=== PATIENT | female | born 1965 | race Caucasian/White ===

== ENCOUNTER 2017-12-19 12:23 | Emergency (ER) | payer BC ==
[2017-12-19] MEDS ORDERED: Cyclobenzaprine 10 MG Tab PO ONE (12:24)
[2017-12-19 12:31] VITALS: BP 132/91
[2017-12-19] MEDS ORDERED: Take Home: Cyclobenzaprine 10 MG Tab, 4 Tab Pack PO ONE (12:59)
--- NOTE | 2017-12-19 13:03 | EDM.PDOC ---
ED HPI GENERAL MEDICAL PROBLEM - General Chief Complaint: Headache Stated Complaint: headache Time Seen by Provider: 12/19/17 12:47 Source of Information: Reports: Patient History Limitations: Reports: No Limitations - History of Present Illness INITIAL COMMENTS - FREE TEXT/NARRATIVE: This patient is a 52 year old female that presents to the ER. Patient reports that she is on muscle relaxer Robaxin for stress and muscle tension. She reports its on backorder at the pharmacy and she has been out for two days. She reports she has been under stress and tension due to her daughter at home. She reports that she is having muscle tension in her neck to the back of her head creating stress tension headache. She denies n, v, d, f, vision changes, stiff neck, cp, soa. Stable. Onset Date: 12/17/17 Duration: Day(s): (2) Location: Reports: Head, Neck Quality: Reports: Ache Severity: Mild Improves with: Reports: None Worsens with: Reports: None Associated Symptoms: Reports: Headaches. Denies: Confusion, Chest Pain, Cough, cough w sputum, Diaphoresis, Fever/Chills, Loss of Appetite, Malaise, Nausea/ Vomiting, Rash, Seizure, Shortness of Breath, Syncope, Weakness Headache Pain Score (Numeric/FACES): 7 - Related Data Allergies Allergy/AdvReac Type Severity Reaction Status Date / Time amoxicillin Allergy Hives Verified 12/19/17 12:30 ketorolac tromethamine Allergy Itching Verified 12/19/17 12:30 [From Toradol] prochlorperazine edisylate Allergy Agitation Verified 12/19/17 12:30 [From Compazine] prochlorperazine maleate Allergy Agitation Verified 12/19/17 12:30 [From Compazine] sumatriptan [From Imitrex] Allergy Airway Verified 12/19/17 12:30 Tightness sumatriptan succinate Allergy Airway Verified 12/19/17 12:30 [From Imitrex] Tightness Home Meds: Home Meds ALPRAZolam [Xanax] 0.5 mg PO Q6H PRN 07/24/13 [History] Citalopram Hydrobromide [Celexa] 40 mg PO DAILY 07/24/13 [History] Hydrocodone/Acetaminophen [Bed[place] 5-325 Tablet] 1 each PO Q6H PRN 07/24/13 [ History] Levothyroxine [Sythroid] 150 mcg PO DAILY 07/24/13 [History] Methocarbamol [Robaxin] 750 mg PO QID 07/24/13 [History] Omeprazole 40 mg PO DAILY 07/24/13 [History] Simvastatin [Zocor] 10 mg PO DAILY 07/24/13 [History] Gabapentin [Neurontin] 300 mg PO QID 06/06/14 [History] ARIPiprazole [Abilify] 5 mg PO DAILY 12/19/17 [History] Past Medical History Cardiovascular History: Reports: High Cholesterol Respiratory History: Reports: Sleep Apnea Gastrointestinal History: Reports: GERD Musculoskeletal History: Reports: Back Pain, Chronic, Other (See Below) Other Musculoskeletal History: shoulder surgery, Neurological History: Reports: Seizure Psychiatric History: Reports: Anxiety, Depression Endocrine/Metabolic History: Reports: Hypothyroidism - Past Surgical History HEENT Surgical History: Reports: Adenoidectomy, Oral Surgery, Tonsillectomy Female Surgical History: Reports: Hysterectomy Social & Family History - Tobacco Use Smoking Status *Q: Current Every Day Smoker Years of Tobacco use: 30 Packs/Tins Daily: 1 - Caffeine Use Caffeine Use: Reports: None - Recreational Drug Use Recreational Drug Use: No ED ROS GENERAL - Review of Systems Review Of Systems: See Below Constitutional: Reports: No Symptoms HEENT: Reports: No Symptoms Respiratory: Reports: No Symptoms Cardiovascular: Reports: No Symptoms Endocrine: Reports: No Symptoms GI/Abdominal: Reports: No Symptoms : Reports: No Symptoms Musculoskeletal: Reports: Muscle Stiffness (neck to back of head) Skin: Reports: No Symptoms Neurological: Reports: Headache (posterior) Psychiatric: Reports: No Symptoms Hematologic/Lymphatic: Reports: No Symptoms Immunologic: Reports: No Symptoms - Physical Exam Exam: See Below Exam Limited By: No Limitations General Appearance: Alert, WD/WN, No Apparent Distress Eye Exam: Bilateral Eye: EOMI, Normal Inspection, PERRL Ears: Normal External Exam, Normal Canal, Hearing Grossly Normal, Normal TMs Nose: Normal Inspection, Normal Mucosa, No Blood Throat/Mouth: Normal Inspection, Normal Lips, Normal Teeth, Normal Gums, Normal Oropharynx, Normal Voice, No Airway Compromise Head Exam: Atraumatic, Normocephalic Neck: Normal Inspection, Supple, Non-Tender, Full Range of Motion Respiratory/Chest: No Respiratory Distress, Lungs Clear, Normal Breath Sounds, No Accessory Muscle Use, Chest Non-Tender Cardiovascular: Normal Peripheral Pulses, Regular Rate, Rhythm, No Edema, No Gallop, No JVD, No Murmur, No Rub Neuro Exam (Abbreviated): Alert, Oriented, Normal Cognition, Normal Gait, No Motor/Sensory Deficits Back Exam: Normal Inspection, Full Range of Motion Extremities: Normal Inspection, Normal Range of Motion, Non-Tender, No Pedal Edema, Normal Capillary Refill Psychiatric: Normal Affect, Normal Mood Skin Exam: Warm, Dry, Intact, Normal Color, No Rash Course - Vital Signs Last Recorded V/S: Last Vital Signs Temp 96.8 F 12/19/17 12:27 Pulse 79 12/19/17 12:27 Resp 20 12/19/17 12:27 BP 132/91 H 12/19/17 12:27 Pulse Ox 98 12/19/17 12:27 - Orders/Labs/Meds Meds: Medications Discontinued Medications Generic Name Dose Route Start Last Admin Trade Name Freq PRN Reason Stop Dose Admin Cyclobenzaprine HCl 2 packet 12/19/17 12:59 Take Home: Cyclobenzaprine 10 Mg, 4 Tab Pack PO 12/19/17 13:00 ONETIME ONE Orphenadrine Citrate 60 mg 12/19/17 12:58 Norflex IM 12/19/17 12:59 NOW STA Departure - Departure Time of Disposition: 13:05 Disposition: Home, Self-Care 01 Condition: Good Clinical Impression: Tension-type headache - Discharge Information Referrals: Alysia Francisco PA-C [Primary Care Provider] - Forms: ED Department Discharge Additional Instructions: Followup with your primary care provider Return to the ER for worsening of condition or any emergent concerns Increase fluids Go home and rest Flexeril 10mg 1 pill three times a day for muscle tension no refill 2 packs - Assessment/Plan Plan: PLEASE SEE RN NOTE FOR PFSH.
== END 2017-12-19 13:12 | disposition home or self-care (01) ==
LOC: CC.ED 12:23
DX: G44.209 Tension-type headache, unspecified, not intractable (principal); K21.9 Gastro-esophageal reflux disease without esophagitis; E03.9 Hypothyroidism, unspecified; Z88.1 Allergy status to other antibiotic agents; Z88.6 Allergy status to analgesic agent; Z88.8 Allergy status to other drugs, medicaments and biological substances; Z79.899 Other long term (current) drug therapy
CPT/HCPCS: 96372; 99283; A9270; J2360

== ENCOUNTER → 2018-12-17 | Day surgery (SDC) | payer BC ==
[~2018-12-17] MED LIST: Lactated Ringers 1,000 ML IV SCH; Propofol 200 MG/20 ML SDV IV ONE
[2018-12-17 13:19] VITALS: BP 188/43
--- NOTE | 2018-12-17 14:05 | OR ---
DATE OF OPERATION: 12/17/2018 PREOPERATIVE DIAGNOSIS: SCREENING COLONOSCOPY. POSTOPERATIVE DIAGNOSIS: SCREENING COLONOSCOPY. SURGEON: Dax Stout MD PROCEDURE: FULL-LENGTH COLONOSCOPY WITH POLYP REMOVAL X4. ANESTHESIA: MAC via PUMP AND STILL OPERATOR. COMPLICATIONS: None. SPECIMEN: 1. Villous adenoma, right colon. 2. Sessile polyp, hepatic flexure. 3. Sessile polyp, transverse colon. 4. Tubular adenoma, rectosigmoid junction. FINDINGS: 1. Full-length colonoscopy. 2. Four separate polyps as described above. RECOMMENDATIONS: Followup colonoscopy in 3 years. INDICATIONS: The patient was in for a routine physical and she was sent for a screening colonoscopy. She is asymptomatic. DESCRIPTION OF PROCEDURE: The patient was prepped and draped, placed in the left lateral decubitus position. A lubricated Olympus colonoscope was inserted and with relative ease advanced to the cecum. We were able to directly visualize the ileocecal valve and appendiceal orifice. The bowel prep was excellent. Upon withdrawal of the scope, cecal pouch appeared fine. In the proximal ascending colon, the patient had a flat 7 or 8 mm villous adenoma removed easily with a snare and actually brought out through the scope in the snare. On the removal site, had no bleeding. The rest of the ascending colon was benign. At the hepatic flexure, the patient had a small flat sessile polyp of approximately 3 mm removed in its entirety with a forceps. The 2nd sessile polyp was found in the proximal transverse colon also removed with a forceps biopsy x2 without problem. This was around 4 mm. The rest of the transverse and descending colons were completely benign. In the sigmoid colon, the patient had no signs of any vascular abnormalities, colitis, or diverticula, and near the rectosigmoid junction, the patient had a 4th small tubular adenoma removed in its entirety with 2 forceps biopsies as well. The rectal vault was benign. Retroflexion of the scope in the rectum showed no anal lesions. Air was then suctioned, scope was removed without complication. PIERRE/THOMAS /[id number]
== END ==
LOC: CC.SDS 11:08
PROVIDERS: ATTEND Family Medicine
DX: Z12.11 Encounter for screening for malignant neoplasm of colon (principal); D12.2 Benign neoplasm of ascending colon; D12.3 Benign neoplasm of transverse colon; D12.7 Benign neoplasm of rectosigmoid junction; K63.5 Polyp of colon; E03.9 Hypothyroidism, unspecified; E78.00 Pure hypercholesterolemia, unspecified; E55.9 Vitamin D deficiency, unspecified; F41.9 Anxiety disorder, unspecified; F32.9 Major depressive disorder, single episode, unspecified; F17.210 Nicotine dependence, cigarettes, uncomplicated; G43.909 Migraine, unspecified, not intractable, without status migrainosus; G47.30 Sleep apnea, unspecified; G40.909 Epilepsy, unspecified, not intractable, without status epilepticus; G89.29 Other chronic pain; M54.9 Dorsalgia, unspecified; M19.90 Unspecified osteoarthritis, unspecified site; Z88.0 Allergy status to penicillin; Z88.8 Allergy status to other drugs, medicaments and biological substances; Z88.6 Allergy status to analgesic agent; Z79.899 Other long term (current) drug therapy
CPT/HCPCS: 45380; 45385; J2704; J7120

== ENCOUNTER 2021-04-14 14:48 | Emergency (ER) | payer OTHER, BC ==
[2021-04-14 14:52] VITALS: BP 118/77; PULSE 75
[2021-04-14] MEDS: Ondansetron 4 MG Tab.DIS PO ONE (15:14)
[2021-04-14] MEDS: Morphine 10 MG/ML SDV IM ONE (15:14)
[2021-04-14] MEDS: predniSONE 20 MG Tab PO STA (15:14)
--- NOTE | 2021-04-14 15:15 | EDM.PDOC ---
ED HPI GENERAL MEDICAL PROBLEM - General Chief Complaint: General Stated Complaint: back pain Time Seen by Provider: 04/14/21 15:02 Source of Information: Reports: Patient History Limitations: Reports: No Limitations - History of Present Illness INITIAL COMMENTS - FREE TEXT/NARRATIVE: This patient is a 56 year old female that presents to the ER. Patient reports that in late February she was lifting an object at work and hurt her lower back. Patient reports since then having right lower back pain to the right leg. She reports being see by PCP. She reports having PT and it was helping. Her last day of PT was this past week. She reports then on her back started to hurt worse again and to the right leg posterior buttock to the knee like before. No known injury to make pain worse. Denies urinary/bowel incontinence or any numbness/tingling to the rectum to indicate any saddle parathesia. Onset Date: 03/25/21 Quality: Reports: Burning Severity: Moderate Improves with: Reports: None Worsens with: Reports: None, Movement Associated Symptoms: Reports: No Other Symptoms. Denies: Confusion, Chest Pain, Cough, cough w sputum, Diaphoresis, Fever/Chills, Headaches, Loss of Appetite, Malaise, Nausea/Vomiting, Rash, Seizure, Shortness of Breath, Syncope, Weakness Right Lower Back Pain Score (Numeric/FACES): 9 - Related Data Allergies Allergy/AdvReac Type Severity Reaction Status Date / Time amoxicillin Allergy Hives Verified 04/14/21 14:52 ketorolac tromethamine Allergy Itching Verified 04/14/21 14:52 [From Toradol] prochlorperazine edisylate Allergy Agitation Verified 04/14/21 14:52 [From Compazine] prochlorperazine maleate Allergy Agitation Verified 04/14/21 14:52 [From Compazine] sumatriptan [From Imitrex] Allergy Airway Verified 04/14/21 14:52 Tightness sumatriptan succinate Allergy Airway Verified 04/14/21 14:52 [From Imitrex] Tightness Home Meds: Home Meds Citalopram Hydrobromide [Celexa] 40 mg PO DAILY 07/24/13 [History] Levothyroxine [Sythroid] 150 mcg PO DAILY 07/24/13 [History] Omeprazole 40 mg PO DAILY 07/24/13 [History] Simvastatin [Zocor] 10 mg PO DAILY 07/24/13 [History] methocarbamoL [Robaxin] 750 mg PO QID 07/24/13 [History] Gabapentin [Neurontin] 300 mg PO QID 06/06/14 [History] Cholecalciferol (Vitamin D3) [Vitamin D3] 2,000 unit PO DAILY 12/16/18 [History] Acetaminophen/Codeine [Tylenol with Codeine No.3 300MG/30MG] 1 tab PO ASDIRECTED 04/14/21 [History] predniSONE [Prednisone] 20 mg PO BID 5 Days #10 tablet 04/14/21 [Rx] Past Medical History Cardiovascular History: Reports: High Cholesterol Respiratory History: Reports: Sleep Apnea Gastrointestinal History: Reports: GERD Musculoskeletal History: Reports: Back Pain, Chronic, Other (See Below) Other Musculoskeletal History: shoulder surgery, Neurological History: Reports: Seizure Psychiatric History: Reports: Anxiety, Depression Endocrine/Metabolic History: Reports: Hypothyroidism - Past Surgical History HEENT Surgical History: Reports: Adenoidectomy, Oral Surgery, Tonsillectomy Female Surgical History: Reports: Hysterectomy Social & Family History - Tobacco Use Tobacco Use Status *Q: Current Every Day Tobacco User Years of Tobacco use: 20 Packs/Tins Daily: 0.5 - Caffeine Use Caffeine Use: Reports: Soda - Recreational Drug Use Recreational Drug Use: No ED ROS GENERAL - Review of Systems Review Of Systems: See Below Constitutional: Reports: No Symptoms HEENT: Reports: No Symptoms Respiratory: Reports: No Symptoms Cardiovascular: Reports: No Symptoms Endocrine: Reports: No Symptoms GI/Abdominal: Reports: No Symptoms : Reports: No Symptoms Musculoskeletal: Reports: Back Pain, Leg Pain (right leg to posterior knee) Skin: Reports: No Symptoms Neurological: Reports: No Symptoms Psychiatric: Reports: No Symptoms Hematologic/Lymphatic: Reports: No Symptoms Immunologic: Reports: No Symptoms ED EXAM, GENERAL - Physical Exam Exam: See Below Exam Limited By: No Limitations General Appearance: Alert, WD/WN, No Apparent Distress Head: Atraumatic, Normocephalic Neck: Normal Inspection, Supple, Non-Tender, Full Range of Motion Respiratory/Chest: No Respiratory Distress, Lungs Clear, Normal Breath Sounds, No Accessory Muscle Use Cardiovascular: Normal Peripheral Pulses, Regular Rate, Rhythm, No Edema, No Gallop, No JVD, No Murmur, No Rub Peripheral Pulses: 2+: Radial (L), Radial (R), Popliteal (L), Popliteal (R), Posterior Tibial (L), Posterior Tibial (R), Dorsalis Pedis (L), Dorsalis Pedis (R) GI/Abdominal: Soft, Non-Tender Back Exam: Normal Inspection, Full Range of Motion, Decreased Range of Motion, Paraspinal Tenderness (right lumbar. right buttock ). No: CVA Tenderness (L), CVA Tenderness (R), Vertebral Tenderness Extremities: Normal Inspection, Normal Range of Motion, Non-Tender, No Pedal Edema, Normal Capillary Refill Neurological: Alert, Oriented, Normal Cognition, Normal Gait, Normal Reflexes, No Motor/Sensory Deficits Psychiatric: Normal Affect, Normal Mood Skin Exam: Warm, Dry, Intact, Normal Color, No Rash Course - Vital Signs Last Recorded V/S: Last Vital Signs Temp 96.1 F L 04/14/21 14:48 Pulse 75 04/14/21 14:48 Resp 18 04/14/21 14:48 BP 118/77 04/14/21 14:48 Pulse Ox 99 04/14/21 14:48 - Orders/Labs/Meds Orders: Active Orders 24 hr Category Date Time Status Morphine Med 04/14/21 15:08 Once 4 mg IM ONETIME ONE Ondansetron [Zofran ODT] Med 04/14/21 15:07 Once 4 mg PO ONETIME ONE predniSONE Med 04/14/21 15:07 Stat 20 mg PO NOW STA Departure - Departure Time of Disposition: 15:10 Disposition: Home, Self-Care 01 Condition: Fair Clinical Impression: Back pain with sciatica - Discharge Information *PRESCRIPTION DRUG MONITORING PROGRAM REVIEWED*: Not Applicable *COPY OF PRESCRIPTION DRUG MONITORING REPORT IN PATIENT ZAN: Not Applicable Prescriptions: predniSONE [Prednisone] 20 mg PO BID 5 Days #10 tablet Instructions: Sciatica, [id number] Additional Instructions: Followup with your primary care provider Return to the ER for worsening of condition or any emergent concerns Prednisone 20mg 1 pill twice a day for 5 days #10 no refill: Sent to pharmacy [facility] No lifting greater than 10lbs Tylenol for pain Sepsis Event Note (ED) - Evaluation Sepsis Screening Result: No Definite Risk - Focused Exam Vital Signs: Vital Signs Temp Pulse Resp BP Pulse Ox 04/14/21 14:48 96.1 F L 75 18 118/77 99 - My Orders Last 24 Hours: My Active Orders 04/14/21 15:07 Ondansetron [Zofran ODT] 4 mg PO ONETIME ONE 04/14/21 15:07 predniSONE 20 mg PO NOW STA 04/14/21 15:08 Morphine 4 mg IM ONETIME ONE - Assessment/Plan Last 24 Hours: My Active Orders 04/14/21 15:07 Ondansetron [Zofran ODT] 4 mg PO ONETIME ONE 04/14/21 15:07 predniSONE 20 mg PO NOW STA 04/14/21 15:08 Morphine 4 mg IM ONETIME ONE Plan: PLEASE SEE RN NOTE FOR PFSH
== END 2021-04-14 15:20 | disposition home or self-care (01) ==
LOC: CC.ED 14:48
DX: M54.41 Lumbago with sciatica, right side (principal); E78.00 Pure hypercholesterolemia, unspecified; K21.9 Gastro-esophageal reflux disease without esophagitis; E03.9 Hypothyroidism, unspecified; Z72.0 Tobacco use; Z88.0 Allergy status to penicillin; Z88.6 Allergy status to analgesic agent; Z79.899 Other long term (current) drug therapy; Z88.8 Allergy status to other drugs, medicaments and biological substances
CPT/HCPCS: 96372; 99283; A9270-GY; J2270; J7512

== ENCOUNTER 2021-04-15 05:40 | Emergency (ER) | payer OTHER, BC ==
[2021-04-15 05:57] VITALS: BP 140/88; PULSE 81
--- NOTE | 2021-04-15 05:59 | EDM.PDOC ---
ED HPI GENERAL MEDICAL PROBLEM - General Chief Complaint: General Stated Complaint: back pain Time Seen by Provider: 04/15/21 05:46 Source of Information: Reports: Patient History Limitations: Reports: No Limitations - History of Present Illness INITIAL COMMENTS - FREE TEXT/NARRATIVE: This patient is a 56 year old female that presents to the ER for return visit for chronic back pain with right sided sciatica that has flared per patient. Patient was seen yesterday in the ER for same complaint. Patient reports she was doing fine when she left the ER, then she went to work and bent over lifting again and now it hurts again. Patient denies any urinary/bowel incontinence, or numbness around rectum to indicate saddle parathesia. Patient is allergic to Toradol, she reports causes body rash and itching. Onset Date: 03/25/21 Duration: Chronic Quality: Reports: Burning Severity: Moderate Improves with: Reports: Immobilization Worsens with: Reports: Movement Associated Symptoms: Reports: No Other Symptoms Right Back Pain Score (Numeric/FACES): 6 - Related Data Allergies Allergy/AdvReac Type Severity Reaction Status Date / Time amoxicillin Allergy Hives Verified 04/15/21 05:47 ketorolac tromethamine Allergy Itching Verified 04/15/21 05:47 [From Toradol] prochlorperazine edisylate Allergy Agitation Verified 04/15/21 05:47 [From Compazine] prochlorperazine maleate Allergy Agitation Verified 04/15/21 05:47 [From Compazine] sumatriptan [From Imitrex] Allergy Airway Verified 04/15/21 05:47 Tightness sumatriptan succinate Allergy Airway Verified 04/15/21 05:47 [From Imitrex] Tightness Home Meds: Home Meds Citalopram Hydrobromide [Celexa] 40 mg PO DAILY 07/24/13 [History] Levothyroxine [Sythroid] 150 mcg PO DAILY 07/24/13 [History] Omeprazole 40 mg PO DAILY 07/24/13 [History] Simvastatin [Zocor] 10 mg PO DAILY 07/24/13 [History] methocarbamoL [Robaxin] 750 mg PO QID 07/24/13 [History] Gabapentin [Neurontin] 300 mg PO QID 06/06/14 [History] Cholecalciferol (Vitamin D3) [Vitamin D3] 2,000 unit PO DAILY 12/16/18 [History] Acetaminophen/Codeine [Tylenol with Codeine No.3 300MG/30MG] 1 tab PO ASDIRECTED 04/14/21 [History] predniSONE [Prednisone] 20 mg PO BID 5 Days #10 tablet 04/14/21 [Rx] Past Medical History Cardiovascular History: Reports: High Cholesterol Respiratory History: Reports: Sleep Apnea Gastrointestinal History: Reports: GERD Musculoskeletal History: Reports: Back Pain, Chronic, Other (See Below) Other Musculoskeletal History: shoulder surgery, Neurological History: Reports: Seizure Psychiatric History: Reports: Anxiety, Depression Endocrine/Metabolic History: Reports: Hypothyroidism - Past Surgical History HEENT Surgical History: Reports: Adenoidectomy, Oral Surgery, Tonsillectomy Female Surgical History: Reports: Hysterectomy Social & Family History - Caffeine Use Caffeine Use: Reports: Soda ED ROS GENERAL - Review of Systems Review Of Systems: See Below Constitutional: Reports: No Symptoms HEENT: Reports: No Symptoms Respiratory: Reports: No Symptoms Cardiovascular: Reports: No Symptoms Endocrine: Reports: No Symptoms GI/Abdominal: Reports: No Symptoms : Reports: No Symptoms Musculoskeletal: Reports: Back Pain (right sided to buttock and behind right knee. ) Skin: Reports: No Symptoms Neurological: Reports: No Symptoms. Denies: Numbness, Paresthesia, Tingling, Difficulty Walking, Weakness Psychiatric: Reports: No Symptoms Hematologic/Lymphatic: Reports: No Symptoms Immunologic: Reports: No Symptoms ED EXAM, GENERAL - Physical Exam Exam: See Below Exam Limited By: No Limitations General Appearance: Alert, WD/WN, No Apparent Distress Neck: Normal Inspection, Supple, Non-Tender, Full Range of Motion Respiratory/Chest: No Respiratory Distress, Lungs Clear, Normal Breath Sounds, No Accessory Muscle Use Cardiovascular: Normal Peripheral Pulses, Regular Rate, Rhythm, No Edema, No Gallop, No JVD, No Murmur, No Rub Peripheral Pulses: 2+: Popliteal (L), Popliteal (R), Posterior Tibial (L), Posterior Tibial (R) Back Exam: Normal Inspection, Decreased Range of Motion (due to pain of right lower back. Worse with twising or bending of trunk. ), Paraspinal Tenderness (right lower mild. ). No: Vertebral Tenderness Extremities: Normal Inspection, Normal Range of Motion, Non-Tender, No Pedal Edema, Normal Capillary Refill Neurological: Alert, Oriented, Normal Cognition, Normal Gait, Normal Reflexes, No Motor/Sensory Deficits Psychiatric: Normal Affect, Normal Mood Skin Exam: Warm, Dry, Intact, Normal Color, No Rash Course - Vital Signs Last Recorded V/S: Last Vital Signs Temp 96.8 F L 04/15/21 05:48 Pulse 81 04/15/21 05:48 Resp 18 04/15/21 05:48 BP 140/88 04/15/21 05:48 Pulse Ox 98 04/15/21 05:48 - Orders/Labs/Meds Meds: Medications Discontinued Medications Generic Name Dose Route Start Last Admin Trade Name Young PRN Reason Stop Dose Admin Orphenadrine Citrate 60 mg 04/15/21 05:52 04/15/21 06:01 Orphenadrine 60 Mg/2 Ml Inj IM 04/15/21 05:53 60 mg ONETIME ONE Administration Tramadol HCl 1 packet 04/15/21 05:54 04/15/21 06:02 Take Home: Tramadol 50 Mg, 4 Tab Pack PO 04/15/21 05:55 1 packet ONETIME ONE Administration Tramadol HCl 50 mg 04/15/21 05:55 04/15/21 06:01 Tramadol 50 Mg Tab PO 04/15/21 05:56 50 mg ONETIME ONE Administration Departure - Departure Time of Disposition: 05:56 Disposition: Home, Self-Care 01 Condition: Fair Clinical Impression: Back pain with sciatica - Discharge Information *PRESCRIPTION DRUG MONITORING PROGRAM REVIEWED*: Not Applicable *COPY OF PRESCRIPTION DRUG MONITORING REPORT IN PATIENT ZAN: Not Applicable Instructions: Sciatica, [id number], Managing Chronic Back Pain, Chronic Back Pain, [id number] Forms: ED Department Discharge Additional Instructions: Followup with your primary care provider Return to the ER for worsening of condition or any emergent concerns No lifting greater than 10lbs: Limit bending, twisting, rotating. Ultram 50mg 1 pill every 6 hours as needed for pain #4 take home Prednisone as prescribed Continue your Robaxin Tylenol for pain as needed Sepsis Event Note (ED) - Focused Exam Vital Signs: Vital Signs Temp Pulse Resp BP Pulse Ox 04/15/21 05:48 96.8 F L 81 18 140/88 98 - Assessment/Plan Plan: PLEASE SEE RN NOTE FOR PFS
[2021-04-15] MEDS: Orphenadrine 60 MG/2 ML Inj IM ONE (06:01)
[2021-04-15] MEDS: traMADol 50 MG Tab PO ONE (06:01)
[2021-04-15] MEDS: Take Home: traMADol 50 MG, 4 Tab Pack PO ONE (06:02)
== END 2021-04-15 06:15 | disposition home or self-care (01) ==
LOC: CC.ED 05:40
DX: M54.41 Lumbago with sciatica, right side (principal); K21.9 Gastro-esophageal reflux disease without esophagitis; E78.00 Pure hypercholesterolemia, unspecified; E03.9 Hypothyroidism, unspecified; Z88.0 Allergy status to penicillin; Z88.6 Allergy status to analgesic agent; Z88.8 Allergy status to other drugs, medicaments and biological substances; Z79.899 Other long term (current) drug therapy
CPT/HCPCS: 96372; 99283; A9270-GY; J2360

== ENCOUNTER 2021-05-06 15:51 | Emergency (ER) | payer OTHER, BC ==
[2021-05-06] MEDS ORDERED: Morphine 10 MG/ML SDV IM ONE (16:36)
[2021-05-06 16:56] VITALS: BP 111/70; PULSE 104
--- NOTE | 2021-05-06 18:09 | EDM.PDOC ---
ED HPI GENERAL MEDICAL PROBLEM - General Chief Complaint: Back Pain or Injury Stated Complaint: BACK HURTS Time Seen by Provider: 05/06/21 16:20 Source of Information: Reports: Patient History Limitations: Reports: No Limitations - History of Present Illness INITIAL COMMENTS - FREE TEXT/NARRATIVE: Meghan is a 56 yo female who presents to the ED with complaints of low back pain with radiation to the right lower extremity. Pain has been present since the 13 of April. Underwent MRI of the back which did show a herniated disk. Patient was seen by Dr. Stern which she is suppose to be undergoing a discectomy and laminectomy. Currently see states no surgery date has been scheduled as it is going thru authorization of insurance. She admits it seems to gradually be getting worse but today she can't take it anymore. She states she was on prednisone for 2 weeks which she finished about a week ago. She also had a steroid injection into the back which helped up until Thursday. She denies any bowel or bladder dysfunction. States the numbness into the right leg is getting worse. Is currently on gabapentin and hydrocodone. Admits the hydrocodone does help. Back Pain Score (Numeric/FACES): 8 - Related Data Allergies Allergy/AdvReac Type Severity Reaction Status Date / Time amoxicillin Allergy Hives Verified 05/06/21 16:27 ketorolac tromethamine Allergy Itching Verified 05/06/21 16:27 [From Toradol] prochlorperazine edisylate Allergy Agitation Verified 05/06/21 16:27 [From Compazine] prochlorperazine maleate Allergy Agitation Verified 05/06/21 16:27 [From Compazine] sumatriptan [From Imitrex] Allergy Airway Verified 05/06/21 16:27 Tightness sumatriptan succinate Allergy Airway Verified 05/06/21 16:27 [From Imitrex] Tightness Home Meds: Home Meds Citalopram Hydrobromide [Celexa] 40 mg PO DAILY 07/24/13 [History] Levothyroxine [Sythroid] 150 mcg PO DAILY 07/24/13 [History] Omeprazole 40 mg PO DAILY 07/24/13 [History] Simvastatin [Zocor] 10 mg PO DAILY 07/24/13 [History] methocarbamoL [Robaxin] 750 mg PO QID 07/24/13 [History] Gabapentin [Neurontin] 300 mg PO QID 06/06/14 [History] Cholecalciferol (Vitamin D3) [Vitamin D3] 2,000 unit PO DAILY 12/16/18 [History] Acetaminophen/Codeine [Tylenol with Codeine No.3 300MG/30MG] 1 tab PO ASDIRECTED 04/14/21 [History] predniSONE [Prednisone] 20 mg PO BID 5 Days #10 tablet 04/14/21 [Rx] Past Medical History Cardiovascular History: Reports: High Cholesterol Respiratory History: Reports: Sleep Apnea Gastrointestinal History: Reports: GERD Musculoskeletal History: Reports: Back Pain, Chronic, Other (See Below) Other Musculoskeletal History: shoulder surgery, Neurological History: Reports: Seizure Psychiatric History: Reports: Anxiety, Depression Endocrine/Metabolic History: Reports: Hypothyroidism - Past Surgical History HEENT Surgical History: Reports: Adenoidectomy, Oral Surgery, Tonsillectomy Female Surgical History: Reports: Hysterectomy Social & Family History - Family History Family Medical History: No Pertinent Family History - Tobacco Use Tobacco Use Status *Q: Current Every Day Tobacco User Years of Tobacco use: 30 Packs/Tins Daily: 1 - Caffeine Use Caffeine Use: Reports: Soda - Recreational Drug Use Recreational Drug Use: No ED ROS GENERAL - Review of Systems Review Of Systems: Comprehensive ROS is negative, except as noted in HPI. ED EXAM,LOWER BACK PAIN/INJURY - Physical Exam Exam: See Below Exam Limited By: No Limitations General Appearance: Alert, Mild Distress Back Exam: Decreased Range of Motion, Muscle Spasm. No: CVA Tenderness (L), CVA Tenderness (R), Vertebral Tenderness Extremities: Limited Range of Motion (SLR positive. Increase discomfort with resistance against right lower extremity with flexion and extension of the right hip. ) Neurological: Normal Reflexes, Oriented x 3, Abnormal Sensation, Straight Leg Raise (R). No: Saddle Anesthesia DTR - Lower Extremities: 2+: Ankle (R), Ankle (L), 3+: Knee (R), Knee (L) Psychiatric: Normal Affect, Normal Mood Skin Exam: Warm, Dry, Intact, Normal Color, No Rash Course - Vital Signs Last Recorded V/S: Last Vital Signs Temp 97.4 F 05/06/21 16:00 Pulse 104 H 05/06/21 16:00 Resp 20 05/06/21 16:00 BP 111/70 05/06/21 16:00 Pulse Ox 97 05/06/21 16:00 - Orders/Labs/Meds Meds: Medications Discontinued Medications Generic Name Dose Route Start Last Admin Trade Name Young PRN Reason Stop Dose Admin Morphine Sulfate 4 mg 05/06/21 16:36 05/06/21 16:40 Morphine 10 Mg/Ml Sdv IM 05/06/21 16:37 4 mg ONETIME ONE Administration Departure - Departure Time of Disposition: 17:00 Disposition: Home, Self-Care 01 Clinical Impression: Lumbar disc herniation with radiculopathy - Discharge Information Instructions: Herniated Disk, [id number] Referrals: Mk Francisco PA-C [Primary Care Provider] - Forms: ED Department Discharge Additional Instructions: 1) Increased Gabapentin to 500mg, 4 times a day. 100mg capsules sent to local pharmacy for 2 weeks 2) Stop Meloxicam and sent Celebrex 200mg twice a day to local pharmacy 3) May increase Easton to 1-2 tablets every 4-6 hours as needed for pain. 4) If any bowel or bladder dysfunction, advise returning to ED 5) Continue home therapies for symptomatic cares. Sepsis Event Note (ED) - Evaluation Sepsis Screening Result: No Definite Risk - Focused Exam Vital Signs: Vital Signs Temp Pulse Resp BP Pulse Ox 05/06/21 16:00 97.4 F 104 H 20 111/70 97 - Problem List & Annotations (1) Lumbar disc herniation with radiculopathy SNOMED Code(s): 751429603 Code(s): M51.16 - INTERVERTEBRAL DISC DISORDERS W RADICULOPATHY, LUMBAR REGION Status: Acute Current Visit: Yes - Assessment/Plan Plan: Patient has been calling into insurance daily to get update on prior authorization. Discussed increasing gabapentin to 500mg - 4 times a day from 400mg - 4 times a day for the next two weeks. Will stop the Meloxicam and start Celebrex 200mg BID. Continue with the methocarbamol and Easton, which she may increase to 1-2 tabs every 4-6 hours as needed. Patient given 4mg of Morphine in the ED for relief, mother is present to drive her. Will discuss with her primary as well.
== END 2021-05-06 17:25 | disposition home or self-care (01) ==
LOC: CC.ED 15:51
DX: M51.16 Intervertebral disc disorders with radiculopathy, lumbar region (principal); E78.00 Pure hypercholesterolemia, unspecified; K21.9 Gastro-esophageal reflux disease without esophagitis; E03.9 Hypothyroidism, unspecified; Z72.0 Tobacco use; Z88.0 Allergy status to penicillin; Z88.5 Allergy status to narcotic agent; Z88.8 Allergy status to other drugs, medicaments and biological substances; Z79.899 Other long term (current) drug therapy
CPT/HCPCS: 96372; 99283; J2270

== ENCOUNTER 2022-06-30 10:37 | Emergency (ER) | payer OTHER, BC ==
[2022-06-30 10:41] VITALS: BP 146/78; PULSE 77
[2022-06-30] MEDS ORDERED: methylPREDNISolone Sodium Succinate 125 MG/2 ML SDV IM STA (10:56)
[2022-06-30] MEDS ORDERED: Ibuprofen 200 MG Tab PO STA (10:57)
== END 2022-06-30 11:16 | disposition home or self-care (01) ==
LOC: CC.ED 10:37
DX: M54.41 Lumbago with sciatica, right side (principal); E78.00 Pure hypercholesterolemia, unspecified; K21.9 Gastro-esophageal reflux disease without esophagitis; E03.9 Hypothyroidism, unspecified; Z72.0 Tobacco use; Z79.899 Other long term (current) drug therapy; Z88.0 Allergy status to penicillin; Z88.5 Allergy status to narcotic agent; Z88.8 Allergy status to other drugs, medicaments and biological substances
CPT/HCPCS: 96372; 99283; A9270-GY; J2930

== ENCOUNTER → 2022-08-08 | Day surgery (SDC) | payer BC ==
[~2022-08-08] MED LIST changes: +Ketamine 200 MG/20 ML MDV ONE; +Midazolam 1 MG/ML 2 ML SDV ONE; -Propofol 200 MG/20 ML SDV IV ONE; +Propofol 200 MG/20 ML SDV ONE; +fentaNYL 50 MCG/ML SDV ONE
[2022-08-08 12:37] VITALS: BP 122/81; PULSE 90
== END ==
LOC: CC.SDS 10:32
PROVIDERS: ATTEND Family Medicine
DX: Z12.11 Encounter for screening for malignant neoplasm of colon (principal); F41.9 Anxiety disorder, unspecified; M19.90 Unspecified osteoarthritis, unspecified site; F32.A Depression, unspecified; E78.00 Pure hypercholesterolemia, unspecified; E03.9 Hypothyroidism, unspecified; G40.909 Epilepsy, unspecified, not intractable, without status epilepticus; G47.30 Sleep apnea, unspecified; E55.9 Vitamin D deficiency, unspecified; F17.210 Nicotine dependence, cigarettes, uncomplicated; Z88.0 Allergy status to penicillin; Z86.010 Personal history of colon polyps; Z88.6 Allergy status to analgesic agent; Z88.1 Allergy status to other antibiotic agents; Z79.899 Other long term (current) drug therapy; Z98.890 Other specified postprocedural states
CPT/HCPCS: J2250; J2704; J3010; J3490; J7120

== ENCOUNTER 2023-04-23 12:36 | Emergency (ER) | payer MEDICAID ==
[2023-04-23] MEDS ORDERED: HYDROmorphone 0.5 MG/0.5 ML Syringe SUBCUT STA (13:01)
[2023-04-23] MEDS ORDERED: fentaNYL 50 MCG/ML SDV IVPUSH ONE (13:40)
[2023-04-23 16:21] VITALS: BP 121/83; PULSE 78
== END 2023-04-23 16:20 | disposition home or self-care (01) ==
LOC: CC.ED 12:36
DX: S52.571A Other intraarticular fracture of lower end of right radius, initial encounter for closed fracture (principal); S52.614A Nondisplaced fracture of right ulna styloid process, initial encounter for closed fracture; E78.00 Pure hypercholesterolemia, unspecified; E03.9 Hypothyroidism, unspecified; Z88.0 Allergy status to penicillin; Z88.6 Allergy status to analgesic agent; Z88.8 Allergy status to other drugs, medicaments and biological substances; Z79.899 Other long term (current) drug therapy; W05.0XXA Fall from non-moving wheelchair, initial encounter
CPT/HCPCS: 25605; 73100-RT; 73110-RT; 96372; 99283-25; J1170; J3010

== ENCOUNTER 2023-04-24 20:27 | Emergency (ER) | payer MEDICAID ==
[2023-04-24] MEDS ORDERED: HYDROmorphone 1 MG/ML Syringe SUBCUT ONE (20:37)
[2023-04-24] MEDS ORDERED: Ketamine 200 MG/20 ML MDV IVPUSH ONE (21:32)
[2023-04-24] MEDS ORDERED: fentaNYL 50 MCG/ML SDV IVPUSH ONE (21:33)
[2023-04-24] MEDS ORDERED: Naloxone 2 MG/2 ML Syringe IVPUSH PRN (21:33)
[2023-04-24] MEDS ORDERED: Sodium Chloride 0.9% 1,000 ML IV ONE (21:38)
[2023-04-24 23:50] VITALS: BP 126/69; PULSE 86
== END 2023-04-24 23:50 | disposition home or self-care (01) ==
LOC: CC.ED 20:27
DX: S52.571A Other intraarticular fracture of lower end of right radius, initial encounter for closed fracture (principal); E78.00 Pure hypercholesterolemia, unspecified; K21.9 Gastro-esophageal reflux disease without esophagitis; E03.9 Hypothyroidism, unspecified; F17.210 Nicotine dependence, cigarettes, uncomplicated; Z88.8 Allergy status to other drugs, medicaments and biological substances; Z88.0 Allergy status to penicillin; Z88.5 Allergy status to narcotic agent; Z79.899 Other long term (current) drug therapy; W01.0XXA Fall on same level from slipping, tripping and stumbling without subsequent striking against object, initial encounter
CPT/HCPCS: 25605; 73100-RT; 73110-RT; 96360; 96361; 96372; 99283-25; J1170; J3010; J7030

== ENCOUNTER 2023-05-07 14:09 | Emergency (ER) | payer MEDICAID ==
[2023-05-07 14:45] LABS: BASOPHILS ABSOLUTE AUTO 0.01 10^3/uL (0.00-0.50); BASOPHILS PERCENT AUTO 0.1 % (0-1); HEMATOCRIT 32.2 % (37.0-47.0); HEMOGLOBIN 10.4 g/dL (12.0-16.0); IMMATURE GRAN ABSOLUTE AUTO 0.05 10^3/uL (0.00-0.49); IMMATURE GRAN PERCENT AUTO 0.5 % (0.0-4.9); LYMPHOCYTES ABSOLUTE AUTO 1.09 10^3/uL (0.60-5.00); MEAN CORPUSCULAR HEMOGLOBIN 28.9 pg (27.0-32.0); MEAN CORPUSCULAR HGB CONC 32.3 g/dL (32.0-36.0); MEAN CORPUSCULAR VOLUME 89.4 fL (83.0-97.0); MONOCYTES ABSOLUTE AUTO 0.24 10^3/uL (0.00-1.50); MONOCYTES PERCENT AUTO 2.2 % (0-10); NEUTROPHILS ABSOLUTE AUTO 9.55 x10^3/uL (1.80-8.00); NEUTROPHILS PERCENT AUTO 87.2 % (41-71); PLATELET COUNT,PLT 484 10^3/uL (150-400); WHITE BLOOD CELL COUNT,WBC 10.9 10^3/uL (4.0-11.0)
[2023-05-07] MEDS: Iopamidol 755 Mg/ML 100 ML Bottle IVPUSH ONE (14:45)
[2023-05-07] MEDS: Dexamethasone 10 MG/ML SDV IVPUSH ONE (14:45)
[2023-05-07 15:00] LABS: ALANINE AMINOTRANSFERASE,ALT 11 U/L (12-78); ALBUMIN 3.5 g/dL (3.4-5.0); ALKALINE PHOSPHATASE 96 U/L (46-116); ASPARTATE AMNIOTRANSFERASE,AST 7 U/L (15-37); BILIRUBIN TOTAL 0.2 mg/dL (0.0-1.0); BLOOD UREA NITROGEN,BUN 16 mg/dL (7-18); CALCIUM 8.6 mg/dL (8.4-10.1); CARBON DIOXIDE,CO2 25 mmol/L (21-32); CHLORIDE,CL 103 mEq/L (98-106); CREATININE 0.9 mg/dL (0.6-1.0); GLUCOSE RANDOM 176 mg/dL (75-99); MAGNESIUM 2.4 mg/dL (1.8-2.4); POTASSIUM,K 4.5 mEq/L (3.5-5.0); PROTEIN TOTAL,TP 7.2 g/dL (6.4-8.2); SODIUM,NA 136 mEq/L (136-145)
[2023-05-07 15:01] LABS: ESTIMATED GFR 75 mL/min (>=60)
[2023-05-07 15:54] VITALS: BP 111/80; PULSE 83
== END 2023-05-07 16:04 | disposition home or self-care (01) ==
LOC: CC.ED 14:09
DX: R59.0 Localized enlarged lymph nodes (principal); E78.00 Pure hypercholesterolemia, unspecified; K21.9 Gastro-esophageal reflux disease without esophagitis; E03.9 Hypothyroidism, unspecified; Z90.710 Acquired absence of both cervix and uterus; Z79.899 Other long term (current) drug therapy; Z88.0 Allergy status to penicillin; Z88.6 Allergy status to analgesic agent; Z88.8 Allergy status to other drugs, medicaments and biological substances
CPT/HCPCS: 36415; 70491; 71045; 71260; 80053; 83735; 84484; 85025; 93005; 93010; 96374; 99284; 99285-25; J1100; Q9967

== ENCOUNTER 2023-05-16 17:21 | Emergency (ER) | payer MEDICAID ==
[2023-05-16 17:29] VITALS: BP 110/78; PULSE 100
[2023-05-16] MEDS ORDERED: Take Home: Doxycycline 100 MG Cap, 4 Cap Pack PO ONE (17:48)
== END 2023-05-16 18:03 | disposition home or self-care (01) ==
LOC: CC.ED 17:21
DX: B37.0 Candidal stomatitis (principal); Z79.899 Other long term (current) drug therapy; K21.9 Gastro-esophageal reflux disease without esophagitis; E78.00 Pure hypercholesterolemia, unspecified; E03.9 Hypothyroidism, unspecified; Z88.8 Allergy status to other drugs, medicaments and biological substances; Z88.0 Allergy status to penicillin; Z90.49 Acquired absence of other specified parts of digestive tract; Z90.710 Acquired absence of both cervix and uterus
CPT/HCPCS: 99282; 99283; A9270-GY

== ENCOUNTER 2024-03-12 09:27 | Emergency (ER) | payer SELFPAY ==
[2024-03-12 09:40] VITALS: BP 131/79; PULSE 115
== END 2024-03-12 09:56 | disposition home or self-care (01) ==
LOC: CC.ED 09:27
DX: B86 Scabies (principal); E78.00 Pure hypercholesterolemia, unspecified; F17.210 Nicotine dependence, cigarettes, uncomplicated; E03.9 Hypothyroidism, unspecified; Z88.0 Allergy status to penicillin; Z88.5 Allergy status to narcotic agent; Z88.8 Allergy status to other drugs, medicaments and biological substances; Z79.890 Hormone replacement therapy; Z79.899 Other long term (current) drug therapy
CPT/HCPCS: 99282

== ENCOUNTER 2024-03-13 13:47 | Emergency (ER) | payer SELFPAY ==
[2024-03-13 14:56] LABS: BASOPHILS ABSOLUTE AUTO 0.04 10^3/uL (0.00-0.50); BASOPHILS PERCENT AUTO 0.8 % (0-1); EOSINOPHILS ABSOLUTE AUTO 0.17 10^3/uL (0.00-1.50); EOSINOPHILS PERCENT AUTO 3.2 % (0-6); HEMATOCRIT 33.5 % (37.0-47.0); HEMOGLOBIN 11.2 g/dL (12.0-16.0); IMMATURE GRAN ABSOLUTE AUTO 0.01 10^3/uL (0.00-0.49); IMMATURE GRAN PERCENT AUTO 0.2 % (0.0-4.9); LYMPHOCYTES ABSOLUTE AUTO 1.89 10^3/uL (0.60-5.00); LYMPHOCYTES PERCENT AUTO 35.7 % (24-44); MEAN CORPUSCULAR HGB CONC 33.4 g/dL (32.0-36.0); MEAN CORPUSCULAR VOLUME 89.8 fL (83.0-97.0); MONOCYTES PERCENT AUTO 9.5 % (0-10); NEUTROPHILS ABSOLUTE AUTO 2.68 x10^3/uL (1.80-8.00); NEUTROPHILS PERCENT AUTO 50.6 % (41-71); PLATELET COUNT,PLT 218 10^3/uL (150-400); RED BLOOD CELL COUNT 3.73 x10^6/uL (4.00-5.50); WHITE BLOOD CELL COUNT,WBC 5.3 10^3/uL (4.0-11.0)
[2024-03-13 15:17] LABS: ALANINE AMINOTRANSFERASE,ALT 41 U/L (12-78); ALKALINE PHOSPHATASE 109 U/L (46-116); ASPARTATE AMNIOTRANSFERASE,AST 60 U/L (15-37); BILIRUBIN TOTAL 0.5 mg/dL (0.0-1.0); BLOOD UREA NITROGEN,BUN 6 mg/dL (7-18); CALCIUM 9.2 mg/dL (8.4-10.1); CARBON DIOXIDE,CO2 33 mmol/L (21-32); CHLORIDE,CL 100 mEq/L (98-106); CREATININE 0.8 mg/dL (0.6-1.0); EST CRCL DRUG DOSING (CG) 61.36 mL/min; GLUCOSE RANDOM 112 mg/dL (75-99); MAGNESIUM 2.1 mg/dL (1.8-2.4); PROTEIN TOTAL,TP 7.2 g/dL (6.4-8.2); SODIUM,NA 141 mEq/L (136-145); TSH ULTRASENSITIVE 18.41 uIU/mL (0.36-5.60)
[2024-03-13 15:27] LABS: ESTIMATED GFR 86 mL/min (>=60); ETHANOL BLOOD MEDICAL < 3 mg/dL (0-3)
[2024-03-13] MEDS: Potassium Chloride 10 MEQ Tab.ER PO ONE (16:25)
[2024-03-13 16:31] LABS: APPEARANCE,URINE CLEAR (CLEAR); BILIRUBIN,URINE NEGATIVE (NEGATIVE); COLOR,URINE YELLOW (YELLOW); GLUCOSE,URINE NEGATIVE (NEGATIVE); KETONES,URINE NEGATIVE (NEGATIVE); LEUKOCYTE ESTERASE,URINE NEGATIVE (NEGATIVE); NITRITE,URINE NEGATIVE (NEGATIVE); PROTEIN,URINE NEGATIVE (NEGATIVE); UROBILINOGEN,URINE 0.2 EU/dL (0.2-1.0)
[2024-03-13 16:36] LABS: AMPHETAMINES,URINE NEGATIVE (NEGATIVE); BARBITURATES,URINE NEGATIVE (NEGATIVE); BENZODIAZEPINE,URINE NEGATIVE (NEGATIVE); MDMA (ECSTASY), URINE NEGATIVE (NEGATIVE); METHADONE,URINE NEGATIVE (NEGATIVE); METHAMPHETAMINES,URINE NEGATIVE (NEGATIVE); OCCULT BLOOD,URINE NEGATIVE (NEGATIVE); OPIATES,URINE POSITIVE (NEGATIVE); OXYCODONE,URINE NEGATIVE (NEGATIVE); PHENCYCLIDINE,URINE NEGATIVE (NEGATIVE); TCA,URINE POSITIVE (NEGATIVE)
[2024-03-13 16:49] VITALS: BP 132/74; PULSE 88
[2024-03-13] MEDS: Triamcinolone Acetonide 0.1% Crm 15 GM Tube TOP ONE (18:04)
== END 2024-03-13 18:12 | disposition home or self-care (01) ==
LOC: CC.ED 13:47
DX: F41.9 Anxiety disorder, unspecified (principal); E78.00 Pure hypercholesterolemia, unspecified; J44.9 Chronic obstructive pulmonary disease, unspecified; K21.9 Gastro-esophageal reflux disease without esophagitis; E03.9 Hypothyroidism, unspecified; Z90.710 Acquired absence of both cervix and uterus; Z88.0 Allergy status to penicillin; Z88.5 Allergy status to narcotic agent; Z88.8 Allergy status to other drugs, medicaments and biological substances; Z79.890 Hormone replacement therapy; Z79.899 Other long term (current) drug therapy
CPT/HCPCS: 36415; 80053; 80305-QW; 80307; 81003; 83735; 84439; 84443; 85025; 99284; A9270-GY

== ENCOUNTER 2024-06-10 17:35 | Inpatient (IN) | payer MEDICAID, OTHER ==
[2024-06-10 18:03] LABS: BASOPHILS ABSOLUTE AUTO 0.02 10^3/uL (0.00-0.50); BASOPHILS PERCENT AUTO 0.2 % (0-1); EOSINOPHILS ABSOLUTE AUTO 0.08 10^3/uL (0.00-1.50); EOSINOPHILS PERCENT AUTO 0.7 % (0-6); HEMATOCRIT 30.2 % (37.0-47.0); HEMOGLOBIN 9.9 g/dL (12.0-16.0); IMMATURE GRAN ABSOLUTE AUTO 0.02 10^3/uL (0.00-0.49); IMMATURE GRAN PERCENT AUTO 0.2 % (0.0-4.9); LYMPHOCYTES ABSOLUTE AUTO 0.67 10^3/uL (0.60-5.00); LYMPHOCYTES PERCENT AUTO 5.6 % (24-44); MEAN CORPUSCULAR HEMOGLOBIN 30.2 pg (27.0-32.0); MEAN CORPUSCULAR HGB CONC 32.8 g/dL (32.0-36.0); MEAN CORPUSCULAR VOLUME 92.1 fL (83.0-97.0); MONOCYTES ABSOLUTE AUTO 0.71 10^3/uL (0.00-1.50); MONOCYTES PERCENT AUTO 5.9 % (0-10); NEUTROPHILS ABSOLUTE AUTO 10.55 x10^3/uL (1.80-8.00); NEUTROPHILS PERCENT AUTO 87.4 % (41-71); PLATELET COUNT,PLT 343 10^3/uL (150-400); RED BLOOD CELL COUNT 3.28 x10^6/uL (4.00-5.50); WHITE BLOOD CELL COUNT,WBC 12.1 10^3/uL (4.0-11.0)
[2024-06-10 18:12] LABS: ALBUMIN 2.5 g/dL (3.4-5.0); BILIRUBIN TOTAL 0.3 mg/dL (0.0-1.0); CALCIUM 8.8 mg/dL (8.4-10.1); CREATININE 1.4 mg/dL (0.6-1.0); EST CRCL DRUG DOSING (CG) 36.27 mL/min; POTASSIUM,K 3.1 mEq/L (3.5-5.0); PROTEIN TOTAL,TP 7.2 g/dL (6.4-8.2)
[2024-06-10 18:14] LABS: APPEARANCE,URINE CLEAR (CLEAR); BILIRUBIN,URINE NEGATIVE (NEGATIVE); COLOR,URINE YELLOW (YELLOW); GLUCOSE,URINE NEGATIVE (NEGATIVE); KETONES,URINE NEGATIVE (NEGATIVE); LEUKOCYTE ESTERASE,URINE TRACE (NEGATIVE); NITRITE,URINE NEGATIVE (NEGATIVE); OCCULT BLOOD,URINE MODERATE (NEGATIVE); PROTEIN,URINE 100 mg/dL (NEGATIVE); UROBILINOGEN,URINE 0.2 EU/dL (0.2-1.0)
[2024-06-10 18:16] LABS: C-REACTIVE PROTEIN 29.3 mg/dL (<=0.50)
[2024-06-10 18:19] LABS: BACTERIA,URINE OCCASIONAL /HPF (NOT SEEN); EPITHELIAL CELLS,URINE FEW /HPF (NOT SEEN); MUCUS,URINE OCCASIONAL /HPF (NOT SEEN); WBC,URINE 0-5 /HPF (0-5)
[2024-06-10 18:20] LABS: AMPHETAMINES,URINE NEGATIVE (NEGATIVE); BARBITURATES,URINE NEGATIVE (NEGATIVE); BENZODIAZEPINE,URINE NEGATIVE (NEGATIVE); MDMA (ECSTASY), URINE NEGATIVE (NEGATIVE); METHADONE,URINE NEGATIVE (NEGATIVE); METHAMPHETAMINES,URINE NEGATIVE (NEGATIVE); OPIATES,URINE POSITIVE (NEGATIVE); OXYCODONE,URINE NEGATIVE (NEGATIVE); PHENCYCLIDINE,URINE NEGATIVE (NEGATIVE); TCA,URINE POSITIVE (NEGATIVE)
[2024-06-10] MEDS: Iopamidol 755 Mg/ML 100 ML Bottle IVPUSH ONE (18:57)
[2024-06-10] MEDS: NS + KCl 20mEq/L 1,000 ML IV SCH (19:16)
[2024-06-10] MEDS: Acetaminophen 325 MG Tab PO ONE (19:22)
[2024-06-10] MEDS ORDERED: Levofloxacin/Dextrose 5%-Water 750 MG in Premix Bag 1 BAG IV SCH (21:30)
[2024-06-10] MEDS: Levofloxacin/Dextrose 5%-Water 750 MG in Premix Bag 1 BAG IV SCH (22:30)
[2024-06-10] MEDS ORDERED: Acetaminophen 325 MG Tab PO PRN (23:25)
[2024-06-10] MEDS: cefTRIAXone 2 GM Vial IVPUSH ONE (23:25)
[2024-06-10] MEDS ORDERED: Ondansetron 4 MG Tab.DIS PO PRN (23:25)
[2024-06-10] MEDS ORDERED: Ondansetron 4 MG/2 ML SDV IV PRN (23:25)
[2024-06-10] MEDS ORDERED: Sodium Chloride 0.9% 1,000 ML IV SCH (23:25)
[2024-06-11] MEDS: methylPREDNISolone Sodium Succinate 125 MG/2 ML SDV IVPUSH SCH (00:24)
[2024-06-11] MEDS: VANCOmycin 1.5 GM/300 ML 1.5 GM in Premix Bag 1 BAG IV ONE (00:24)
[2024-06-11] MEDS: NS + KCl 20mEq/L 1,000 ML IV SCH (00:50)
[2024-06-11] MEDS: Enoxaparin 40 MG/0.4 ML Syringe SUBCUT SCH ×2 (07:28→09:04)
[2024-06-11 07:39] LABS: BASOPHILS ABSOLUTE AUTO 0.41 10^3/uL (0.00-0.50); BASOPHILS PERCENT AUTO 3.1 % (0-1); EOSINOPHILS ABSOLUTE AUTO 0.08 10^3/uL (0.00-1.50); EOSINOPHILS PERCENT AUTO 0.6 % (0-6); HEMATOCRIT 29.7 % (37.0-47.0); HEMOGLOBIN 9.8 g/dL (12.0-16.0); IMMATURE GRAN ABSOLUTE AUTO 0.14 10^3/uL (0.00-0.49); IMMATURE GRAN PERCENT AUTO 1.1 % (0.0-4.9); LYMPHOCYTES ABSOLUTE AUTO 0.79 10^3/uL (0.60-5.00); LYMPHOCYTES PERCENT AUTO 6.1 % (24-44); MEAN CORPUSCULAR HEMOGLOBIN 30.3 pg (27.0-32.0); MONOCYTES ABSOLUTE AUTO 1.16 10^3/uL (0.00-1.50); MONOCYTES PERCENT AUTO 8.9 % (0-10); NEUTROPHILS ABSOLUTE AUTO 10.45 x10^3/uL (1.80-8.00); NEUTROPHILS PERCENT AUTO 80.2 % (41-71); PLATELET COUNT,PLT 359 10^3/uL (150-400); RED BLOOD CELL COUNT 3.23 x10^6/uL (4.00-5.50)
[2024-06-11 07:55] LABS: ALBUMIN 2.6 g/dL (3.4-5.0); BILIRUBIN TOTAL 0.3 mg/dL (0.0-1.0); CALCIUM 8.1 mg/dL (8.4-10.1); CREATININE 1.3 mg/dL (0.6-1.0); EST CRCL DRUG DOSING (CG) 41.23 mL/min; PROTEIN TOTAL,TP 6.6 g/dL (6.4-8.2)
[2024-06-11 08:14] LABS: POTASSIUM,K 3.4 mEq/L (3.5-5.0)
[2024-06-11 08:15] LABS: C-REACTIVE PROTEIN 28.34 mg/dL (<=0.50)
[2024-06-11] MEDS: Albuterol/Ipratropium 3.0-0.5 MG/3 ML Neb Soln NEB SCH (08:57)
[2024-06-11] MEDS ORDERED: traZODone 50 MG Tab PO PRN (09:48)
[2024-06-11] MEDS ORDERED: Propranolol 10 MG Tab PO PRN (09:48)
[2024-06-11] MEDS: Gabapentin 300 MG Cap PO SCH (11:21)
[2024-06-11] MEDS: VANCOmycin 1 GM/200 ML 1 GM in Premix Bag 1 BAG IV SCH (11:21)
[2024-06-11] MEDS: Acetaminophen/HYDROcodone 325-5 MG Tab PO PRN (11:45)
[2024-06-11] MEDS: DULoxetine 20 MG Cap PO SCH (12:15)
[2024-06-11] MEDS: Rosuvastatin 10 MG Tab PO SCH (12:15)
[2024-06-11] MEDS: Ascorbic Acid 500 MG Tab PO SCH (12:16)
[2024-06-11] MEDS: Cholecalciferol (Vitamin D3) 25 MCG Tab PO SCH (12:17)
[2024-06-11] MEDS: Estradiol 1 MG Tab PO SCH (12:17)
[2024-06-11] MEDS: Pantoprazole 40 MG Tab.CR PO SCH (12:17)
[2024-06-11] MEDS: Ferrous Sulfate 324 MG Tab.EC PO SCH (12:17)
[2024-06-11] MEDS: Levothyroxine 100 MCG Tab PO SCH (12:17)
[2024-06-11] MEDS: HYDROCODONE PO SCH (12:21)
[2024-06-11] MEDS: Non-Formulary Medication 1 Each (Tiotropium [Spiriva Handihaler] 18 MCG Cap) INH SCH (12:21)
[2024-06-11] MEDS: [UNRECOGNIZED DRUG - OTHER] PO SCH (12:21)
[2024-06-11] MEDS: ACETAMINOPHEN PO SCH (12:21)
[2024-06-12 07:35] LABS: ALBUMIN 2.1 g/dL (3.4-5.0); BILIRUBIN TOTAL 0.2 mg/dL (0.0-1.0); C-REACTIVE PROTEIN 15.28 mg/dL (<=0.50); CALCIUM 9.1 mg/dL (8.4-10.1); CREATININE 0.8 mg/dL (0.6-1.0); POTASSIUM,K 4.1 mEq/L (3.5-5.0); PROTEIN TOTAL,TP 6.6 g/dL (6.4-8.2)
[2024-06-12 07:36] LABS: BASOPHILS ABSOLUTE AUTO 0.01 10^3/uL (0.00-0.50); BASOPHILS PERCENT AUTO 0.1 % (0-1); HEMATOCRIT 30.7 % (37.0-47.0); HEMOGLOBIN 9.8 g/dL (12.0-16.0); IMMATURE GRAN ABSOLUTE AUTO 0.07 10^3/uL (0.00-0.49); IMMATURE GRAN PERCENT AUTO 0.5 % (0.0-4.9); LYMPHOCYTES ABSOLUTE AUTO 0.55 10^3/uL (0.60-5.00); MEAN CORPUSCULAR HEMOGLOBIN 29.9 pg (27.0-32.0); MEAN CORPUSCULAR HGB CONC 31.9 g/dL (32.0-36.0); MEAN CORPUSCULAR VOLUME 93.6 fL (83.0-97.0); MONOCYTES ABSOLUTE AUTO 0.29 10^3/uL (0.00-1.50); MONOCYTES PERCENT AUTO 2.1 % (0-10); NEUTROPHILS ABSOLUTE AUTO 12.88 x10^3/uL (1.80-8.00); NEUTROPHILS PERCENT AUTO 93.3 % (41-71); PLATELET COUNT,PLT 436 10^3/uL (150-400); RED BLOOD CELL COUNT 3.28 x10^6/uL (4.00-5.50); WHITE BLOOD CELL COUNT,WBC 13.8 10^3/uL (4.0-11.0)
[2024-06-12] MEDS: Potassium Chloride 20 MEQ Tab.ER PO SCH (09:54)
[2024-06-13 07:28] LABS: ALBUMIN 2.3 g/dL (3.4-5.0); BILIRUBIN TOTAL 0.2 mg/dL (0.0-1.0); C-REACTIVE PROTEIN 7.61 mg/dL (<=0.50); CALCIUM 9.2 mg/dL (8.4-10.1); CREATININE 0.9 mg/dL (0.6-1.0); EST CRCL DRUG DOSING (CG) 59.55 mL/min; POTASSIUM,K 4.7 mEq/L (3.5-5.0); PROTEIN TOTAL,TP 6.7 g/dL (6.4-8.2)
[2024-06-13 07:31] LABS: BASOPHILS ABSOLUTE AUTO 0.01 10^3/uL (0.00-0.50); BASOPHILS PERCENT AUTO 0.1 % (0-1); HEMATOCRIT 31.5 % (37.0-47.0); HEMOGLOBIN 10.1 g/dL (12.0-16.0); IMMATURE GRAN ABSOLUTE AUTO 0.23 10^3/uL (0.00-0.49); IMMATURE GRAN PERCENT AUTO 1.6 % (0.0-4.9); LYMPHOCYTES ABSOLUTE AUTO 0.83 10^3/uL (0.60-5.00); LYMPHOCYTES PERCENT AUTO 5.8 % (24-44); MEAN CORPUSCULAR HEMOGLOBIN 30.1 pg (27.0-32.0); MEAN CORPUSCULAR HGB CONC 32.1 g/dL (32.0-36.0); MONOCYTES ABSOLUTE AUTO 0.43 10^3/uL (0.00-1.50); NEUTROPHILS ABSOLUTE AUTO 12.82 x10^3/uL (1.80-8.00); NEUTROPHILS PERCENT AUTO 89.5 % (41-71); PLATELET COUNT,PLT 513 10^3/uL (150-400); RED BLOOD CELL COUNT 3.35 x10^6/uL (4.00-5.50); WHITE BLOOD CELL COUNT,WBC 14.3 10^3/uL (4.0-11.0)
[2024-06-13] MEDS: Levofloxacin/Dextrose 5%-Water 750 MG in Premix Bag 1 BAG IV SCH (12:10)
[2024-06-13] MEDS: metroNIDAZOLE 500 MG Tab PO SCH (16:27)
[2024-06-13] MEDS: cefTRIAXone 1 GM Vial IVPUSH SCH (19:56)
[2024-06-14] MEDS ORDERED: Naloxone 2 MG/2 ML Syringe IVPUSH PRN (06:46)
[2024-06-14 07:07] LABS: BASOPHILS ABSOLUTE AUTO 0.01 10^3/uL (0.00-0.50); BASOPHILS PERCENT AUTO 0.1 % (0-1); EOSINOPHILS ABSOLUTE AUTO 0.04 10^3/uL (0.00-1.50); EOSINOPHILS PERCENT AUTO 0.3 % (0-6); HEMATOCRIT 33.6 % (37.0-47.0); HEMOGLOBIN 10.6 g/dL (12.0-16.0); IMMATURE GRAN ABSOLUTE AUTO 0.11 10^3/uL (0.00-0.49); LYMPHOCYTES PERCENT AUTO 20.1 % (24-44); MEAN CORPUSCULAR HEMOGLOBIN 29.5 pg (27.0-32.0); MEAN CORPUSCULAR HGB CONC 31.5 g/dL (32.0-36.0); MEAN CORPUSCULAR VOLUME 93.6 fL (83.0-97.0); MONOCYTES ABSOLUTE AUTO 0.53 10^3/uL (0.00-1.50); MONOCYTES PERCENT AUTO 4.6 % (0-10); NEUTROPHILS ABSOLUTE AUTO 8.46 x10^3/uL (1.80-8.00); NEUTROPHILS PERCENT AUTO 73.9 % (41-71); PLATELET COUNT,PLT 471 10^3/uL (150-400); RED BLOOD CELL COUNT 3.59 x10^6/uL (4.00-5.50); WHITE BLOOD CELL COUNT,WBC 11.5 10^3/uL (4.0-11.0)
[2024-06-14] MEDS: HYDROmorphone 0.5 MG/0.5 ML Syringe IVPUSH ONE (07:07)
[2024-06-14] MEDS: methylPREDNISolone Sodium Succinate 125 MG/2 ML SDV IVPUSH SCH (07:33)
[2024-06-14] MEDS: Lactobacillus Rhamnosus GG (Probiotic) Cap PO SCH (07:34)
[2024-06-14 07:44] LABS: ALBUMIN 2.5 g/dL (3.4-5.0); BILIRUBIN TOTAL 0.3 mg/dL (0.0-1.0); C-REACTIVE PROTEIN 5.04 mg/dL (<=0.50); CREATININE 0.9 mg/dL (0.6-1.0); EST CRCL DRUG DOSING (CG) 59.55 mL/min; POTASSIUM,K 3.8 mEq/L (3.5-5.0); PROTEIN TOTAL,TP 6.6 g/dL (6.4-8.2)
[2024-06-14] MEDS: Cyclobenzaprine 10 MG Tab PO PRN (10:39)
[2024-06-14] MEDS: Naproxen 500 MG Tab PO PRN (10:47)
[2024-06-14] MEDS: ALPRAZolam 0.25 MG Tab PO ONE (10:47)
[2024-06-14 16:15] VITALS: BP 116/70; PULSE 107
== END 2024-06-14 15:50 | disposition home or self-care (01) | DRG 179 ==
LOC: CC.ED 17:35 → UNDOADMIN 21:42 → CC.MS 21:42
PROVIDERS: ADMIT Physician Assistant Medical; ATTEND Physician Assistant Medical
DX: J85.1 Abscess of lung with pneumonia (principal); B95.61 Methicillin susceptible Staphylococcus aureus infection as the cause of diseases classified elsewhere; J44.9 Chronic obstructive pulmonary disease, unspecified; E78.00 Pure hypercholesterolemia, unspecified; G47.30 Sleep apnea, unspecified; G89.29 Other chronic pain; M54.9 Dorsalgia, unspecified; F41.9 Anxiety disorder, unspecified; F32.A Depression, unspecified; E03.9 Hypothyroidism, unspecified; F17.210 Nicotine dependence, cigarettes, uncomplicated; Z88.1 Allergy status to other antibiotic agents; Z88.8 Allergy status to other drugs, medicaments and biological substances; Z90.89 Acquired absence of other organs; Z90.710 Acquired absence of both cervix and uterus; Z98.890 Other specified postprocedural states
CPT/HCPCS: 36415; 71046; 71260; 80053; 80202; 80305-QW; 81001; 85025; 86140; 87070; 87205; 87428-QW; 94640; 96365; 96366; 99223; 99232; 99233; 99238; 99285-25; A9270-GY; J0696; J1171; J1650; J1956; J2919; J3372; J3480; J7620-GY; Q9967

== ENCOUNTER 2024-07-24 15:24 | Emergency (ER) | payer OTHER ==
[2024-07-24 16:14] LABS: APPEARANCE,URINE SLIGHTLY CLOUDY (CLEAR); BILIRUBIN,URINE NEGATIVE (NEGATIVE); COLOR,URINE YELLOW (YELLOW); GLUCOSE,URINE NEGATIVE (NEGATIVE); KETONES,URINE NEGATIVE (NEGATIVE); LEUKOCYTE ESTERASE,URINE NEGATIVE (NEGATIVE); NITRITE,URINE NEGATIVE (NEGATIVE); OCCULT BLOOD,URINE NEGATIVE (NEGATIVE); PROTEIN,URINE TRACE mg/dL (NEGATIVE); UROBILINOGEN,URINE 0.2 EU/dL (0.2-1.0)
[2024-07-24 16:20] LABS: AMPHETAMINES,URINE NEGATIVE (NEGATIVE); BARBITURATES,URINE NEGATIVE (NEGATIVE); BENZODIAZEPINE,URINE POSITIVE (NEGATIVE); MDMA (ECSTASY), URINE NEGATIVE (NEGATIVE); METHADONE,URINE NEGATIVE (NEGATIVE); METHAMPHETAMINES,URINE NEGATIVE (NEGATIVE); OPIATES,URINE POSITIVE (NEGATIVE); OXYCODONE,URINE POSITIVE (NEGATIVE); PHENCYCLIDINE,URINE NEGATIVE (NEGATIVE); TCA,URINE POSITIVE (NEGATIVE)
[2024-07-24 16:24] LABS: BACTERIA,URINE FEW /HPF (NOT SEEN); EPITHELIAL CELLS,URINE MANY /HPF (NOT SEEN); RBC,URINE 0-5 /HPF (0-5); WBC,URINE 0-5 /HPF (0-5)
[2024-07-24 17:58] VITALS: BP 118/58; PULSE 91
[2024-07-24] MEDS: HYDROmorphone 0.5 MG/0.5 ML Syringe SUBCUT ONE (18:02)
[2024-07-26 12:46] LABS: C.TRACHOMATIS BY TMA Negative (Negative); N.GONORRHOEAE BY TMA Negative (Negative); SOURCE URINE
== END 2024-07-24 18:35 | disposition home or self-care (01) ==
LOC: CC.ED 15:24
DX: S50.12XA Contusion of left forearm, initial encounter (principal); B37.31 Acute candidiasis of vulva and vagina; M54.50 Low back pain, unspecified; G89.29 Other chronic pain; K21.9 Gastro-esophageal reflux disease without esophagitis; J44.9 Chronic obstructive pulmonary disease, unspecified; E03.9 Hypothyroidism, unspecified; E78.00 Pure hypercholesterolemia, unspecified; Z90.710 Acquired absence of both cervix and uterus; Z88.0 Allergy status to penicillin; Z88.5 Allergy status to narcotic agent; Z88.8 Allergy status to other drugs, medicaments and biological substances; Z79.899 Other long term (current) drug therapy; Z79.890 Hormone replacement therapy; X58.XXXA Exposure to other specified factors, initial encounter
CPT/HCPCS: 80305-QW; 81001; 81025; 81515; 87491; 87591; 96372; 99283; 99284

== ENCOUNTER 2024-07-25 14:44 | Emergency (ER) | payer OTHER ==
[2024-07-25 14:54] VITALS: BP 110/68; PULSE 107
[2024-07-25] MEDS ORDERED: Naloxone 2 MG/2 ML Syringe IVPUSH PRN (15:12)
[2024-07-25] MEDS: HYDROmorphone 0.5 MG/0.5 ML Syringe SUBCUT ONE (15:16)
== END 2024-07-25 15:34 | disposition home or self-care (01) ==
LOC: CC.ED 14:44
DX: M54.50 Low back pain, unspecified (principal); J44.9 Chronic obstructive pulmonary disease, unspecified; K21.9 Gastro-esophageal reflux disease without esophagitis; E78.00 Pure hypercholesterolemia, unspecified; E03.9 Hypothyroidism, unspecified; Z90.710 Acquired absence of both cervix and uterus; Z87.891 Personal history of nicotine dependence; Z79.899 Other long term (current) drug therapy; Z88.0 Allergy status to penicillin; Z88.5 Allergy status to narcotic agent; Z88.6 Allergy status to analgesic agent; Z88.8 Allergy status to other drugs, medicaments and biological substances
CPT/HCPCS: 96372; 99283; 99284

== ENCOUNTER 2024-09-28 18:47 | Inpatient (IN) | payer OTHER ==
[2024-09-28 19:29] LABS: BASOPHILS ABSOLUTE AUTO 0.03 10^3/uL (0.00-0.50); BASOPHILS PERCENT AUTO 0.3 % (0-1); EOSINOPHILS ABSOLUTE AUTO 0.15 10^3/uL (0.00-1.50); EOSINOPHILS PERCENT AUTO 1.6 % (0-6); HEMATOCRIT 31.3 % (37.0-47.0); HEMOGLOBIN 9.9 g/dL (12.0-16.0); IMMATURE GRAN ABSOLUTE AUTO 0.01 10^3/uL (0.00-0.49); IMMATURE GRAN PERCENT AUTO 0.1 % (0.0-4.9); LYMPHOCYTES ABSOLUTE AUTO 1.28 10^3/uL (0.60-5.00); LYMPHOCYTES PERCENT AUTO 13.3 % (24-44); MEAN CORPUSCULAR HEMOGLOBIN 29.6 pg (27.0-32.0); MEAN CORPUSCULAR HGB CONC 31.6 g/dL (32.0-36.0); MEAN CORPUSCULAR VOLUME 93.4 fL (83.0-97.0); MONOCYTES ABSOLUTE AUTO 0.56 10^3/uL (0.00-1.50); MONOCYTES PERCENT AUTO 5.8 % (0-10); NEUTROPHILS ABSOLUTE AUTO 7.59 x10^3/uL (1.80-8.00); NEUTROPHILS PERCENT AUTO 78.9 % (41-71); PLATELET COUNT,PLT 214 10^3/uL (150-400); RED BLOOD CELL COUNT 3.35 x10^6/uL (4.00-5.50); WHITE BLOOD CELL COUNT,WBC 9.6 10^3/uL (4.0-11.0)
[2024-09-28] MEDS: Sodium Chloride 0.9% 1,000 ML IV ONE (19:29)
[2024-09-28 19:38] LABS: APPEARANCE,URINE CLEAR (CLEAR); BILIRUBIN,URINE NEGATIVE (NEGATIVE); COLOR,URINE YELLOW (YELLOW); GLUCOSE,URINE NEGATIVE (NEGATIVE); KETONES,URINE NEGATIVE (NEGATIVE); LEUKOCYTE ESTERASE,URINE NEGATIVE (NEGATIVE); NITRITE,URINE NEGATIVE (NEGATIVE); OCCULT BLOOD,URINE TRACE-INTACT (NEGATIVE); PROTEIN,URINE NEGATIVE (NEGATIVE); UROBILINOGEN,URINE 0.2 EU/dL (0.2-1.0)
[2024-09-28 19:45] LABS: LACTIC ACID 1.4 mmol/L (0.4-2.0)
[2024-09-28 19:46] LABS: BACTERIA,URINE NOT SEEN /HPF (NOT SEEN); EPITHELIAL CELLS,URINE OCCASIONAL /HPF (NOT SEEN); MUCUS,URINE NOT SEEN /HPF (NOT SEEN); RBC,URINE 0-5 /HPF (0-5); WBC,URINE NOT SEEN /HPF (0-5)
[2024-09-28 19:51] LABS: ALBUMIN 2.9 g/dL (3.4-5.0); BILIRUBIN TOTAL 0.3 mg/dL (0.0-1.0); C-REACTIVE PROTEIN 6.29 mg/dL (<=0.50); CALCIUM 8.3 mg/dL (8.4-10.1); CREATININE 0.9 mg/dL (0.6-1.0); EST CRCL DRUG DOSING (CG) 54.55 mL/min; PROTEIN TOTAL,TP 6.3 g/dL (6.4-8.2)
[2024-09-28 20:05] LABS: CORONAVIRUS COVID-19 NAA NEGATIVE (NEGATIVE); INFLUENZA A NAA NEGATIVE (NEGATIVE); INFLUENZA B NAA NEGATIVE (NEGATIVE); RESPIRATORY SYNCYTIAL VIR NAA NEGATIVE (NEGATIVE)
[2024-09-28] MEDS: Magnesium Sulf/Wat 2 GM/50 mL 2 GM in Premix Bag 1 BAG IV ONE (20:11)
[2024-09-28] MEDS: Azithromycin 500 MG in Sodium Chloride 0.9% 250 ML IV SCH (20:11)
[2024-09-28] MEDS: cefTRIAXone 2 GM Vial IVPUSH ONE (20:11)
[2024-09-28] MEDS ORDERED: Ondansetron 4 MG Tab.DIS PO PRN (21:17)
[2024-09-28] MEDS ORDERED: Ondansetron 4 MG/2 ML SDV IV PRN (21:17)
[2024-09-28] MEDS: Potassium Chloride 20 MEQ Tab.ER PO ONE (21:19)
[2024-09-28] MEDS: Sodium Chloride 0.9% 1,000 ML IV SCH (21:27)
[2024-09-28] MEDS: cefTRIAXone 500 MG Vial IVPUSH SCH (22:12)
[2024-09-29 07:37] LABS: BASOPHILS ABSOLUTE AUTO 0.02 10^3/uL (0.00-0.50); BASOPHILS PERCENT AUTO 0.2 % (0-1); EOSINOPHILS PERCENT AUTO 1.2 % (0-6); HEMOGLOBIN 10.1 g/dL (12.0-16.0); IMMATURE GRAN ABSOLUTE AUTO 0.01 10^3/uL (0.00-0.49); IMMATURE GRAN PERCENT AUTO 0.1 % (0.0-4.9); LYMPHOCYTES ABSOLUTE AUTO 1.07 10^3/uL (0.60-5.00); LYMPHOCYTES PERCENT AUTO 12.4 % (24-44); MEAN CORPUSCULAR HEMOGLOBIN 29.5 pg (27.0-32.0); MEAN CORPUSCULAR HGB CONC 31.6 g/dL (32.0-36.0); MEAN CORPUSCULAR VOLUME 93.6 fL (83.0-97.0); MONOCYTES ABSOLUTE AUTO 0.45 10^3/uL (0.00-1.50); MONOCYTES PERCENT AUTO 5.2 % (0-10); NEUTROPHILS ABSOLUTE AUTO 6.97 x10^3/uL (1.80-8.00); NEUTROPHILS PERCENT AUTO 80.9 % (41-71); PLATELET COUNT,PLT 205 10^3/uL (150-400); RED BLOOD CELL COUNT 3.42 x10^6/uL (4.00-5.50); WHITE BLOOD CELL COUNT,WBC 8.6 10^3/uL (4.0-11.0)
[2024-09-29 08:02] LABS: ALBUMIN 2.6 g/dL (3.4-5.0); BILIRUBIN TOTAL 0.4 mg/dL (0.0-1.0); C-REACTIVE PROTEIN 11.49 mg/dL (<=0.50); CALCIUM 8.3 mg/dL (8.4-10.1); CREATININE 0.7 mg/dL (0.6-1.0); EST CRCL DRUG DOSING (CG) 70.13 mL/min; POTASSIUM,K 3.7 mEq/L (3.5-5.0); PROTEIN TOTAL,TP 6.2 g/dL (6.4-8.2)
[2024-09-29] MEDS ORDERED: Cyclobenzaprine 10 MG Tab PO PRN (08:10)
[2024-09-29] MEDS ORDERED: [UNRECOGNIZED DRUG - OTHER] PO SCH (08:15)
[2024-09-29] MEDS ORDERED: ASCORBIC ACID PO SCH (08:15)
[2024-09-29] MEDS ORDERED: IRON CARBONYL PO SCH (08:15)
[2024-09-29] MEDS ORDERED: ERGOCALCIFEROL 50 MCG PO SCH (08:15)
[2024-09-29] MEDS ORDERED: Triamcinolone Acetonide 0.1% Crm 15 GM Tube TOP SCH (08:15)
[2024-09-29] MEDS: Magnesium Oxide 400 MG Tab PO SCH (09:09)
[2024-09-29] MEDS: Potassium Chloride 20 MEQ Tab.ER PO SCH (09:09)
[2024-09-29] MEDS: DULoxetine 20 MG Cap PO ONE (12:08)
[2024-09-29] MEDS: Levothyroxine 125 MCG Tab PO ONE (12:10)
[2024-09-29] MEDS: PARoxetine 20 MG Tab PO ONE (12:10)
[2024-09-29] MEDS: Meloxicam 7.5 MG Tab PO ONE (12:10)
[2024-09-29] MEDS: fentaNYL 25 MCG/HR Transdermal Patch TRDERM SCH (12:11)
[2024-09-29] MEDS: Estradiol 1 MG Tab PO ONE (12:11)
[2024-09-29] MEDS: Pantoprazole 40 MG Tab.CR PO ONE (12:11)
[2024-09-29] MEDS: Acetaminophen/HYDROcodone 325-5 MG Tab PO SCH (13:46)
[2024-09-29] MEDS: Gabapentin 300 MG Cap PO SCH (13:47)
[2024-09-29] MEDS: Formoterol/Mometasone 200-5 MCG 8.8 GM Inhaler INH SCH (19:36)
[2024-09-29] MEDS: cefTRIAXone 2 GM Vial IVPUSH SCH (19:36)
[2024-09-29] MEDS: Calcium Carbonate 500 MG Tab.Chew PO SCH (19:42)
[2024-09-29] MEDS: Rosuvastatin 10 MG Tab PO SCH (19:43)
[2024-09-29] MEDS: Ibuprofen 200 MG Tab PO PRN (19:44)
[2024-09-29] MEDS: Montelukast 10 MG Tab PO SCH (19:44)
[2024-09-29] MEDS: Meloxicam 7.5 MG Tab PO SCH (19:44)
[2024-09-29] MEDS ORDERED: Azithromycin 500 MG in Sodium Chloride 0.9% 250 ML IV SCH (20:00)
[2024-09-29] MEDS: Enoxaparin 40 MG/0.4 ML Syringe SUBCUT SCH (20:25)
[2024-09-30] MEDS: Acetaminophen 325 MG Tab PO PRN (02:37)
[2024-09-30] MEDS: Pantoprazole 40 MG Tab.CR PO SCH (06:20)
[2024-09-30] MEDS: Levothyroxine 125 MCG Tab PO SCH (06:20)
[2024-09-30 07:39] LABS: BASOPHILS ABSOLUTE AUTO 0.03 10^3/uL (0.00-0.50); BASOPHILS PERCENT AUTO 0.4 % (0-1); EOSINOPHILS ABSOLUTE AUTO 0.18 10^3/uL (0.00-1.50); EOSINOPHILS PERCENT AUTO 2.3 % (0-6); IMMATURE GRAN ABSOLUTE AUTO 0.02 10^3/uL (0.00-0.49); IMMATURE GRAN PERCENT AUTO 0.3 % (0.0-4.9); LYMPHOCYTES ABSOLUTE AUTO 0.84 10^3/uL (0.60-5.00); LYMPHOCYTES PERCENT AUTO 10.5 % (24-44); MEAN CORPUSCULAR HEMOGLOBIN 29.4 pg (27.0-32.0); MEAN CORPUSCULAR HGB CONC 31.3 g/dL (32.0-36.0); MEAN CORPUSCULAR VOLUME 94.1 fL (83.0-97.0); MONOCYTES ABSOLUTE AUTO 0.45 10^3/uL (0.00-1.50); MONOCYTES PERCENT AUTO 5.6 % (0-10); NEUTROPHILS ABSOLUTE AUTO 6.46 x10^3/uL (1.80-8.00); NEUTROPHILS PERCENT AUTO 80.9 % (41-71); PLATELET COUNT,PLT 197 10^3/uL (150-400)
[2024-09-30] MEDS: Tiotropium Bromide 4 GM Inhalation Spray (2.5mcg/1 dose; 10 doses) INH SCH (07:49)
[2024-09-30] MEDS: PARoxetine 20 MG Tab PO SCH (07:50)
[2024-09-30] MEDS: Estradiol 1 MG Tab PO SCH (07:50)
[2024-09-30] MEDS: Cholecalciferol (Vitamin D3) 25 MCG Tab PO SCH (07:50)
[2024-09-30] MEDS: DULoxetine 20 MG Cap PO SCH (07:51)
[2024-09-30] MEDS: Ascorbic Acid 500 MG Tab PO SCH (07:51)
[2024-09-30 07:53] LABS: ALBUMIN 2.5 g/dL (3.4-5.0); BILIRUBIN TOTAL 0.4 mg/dL (0.0-1.0); C-REACTIVE PROTEIN 21.78 mg/dL (<=0.50); CALCIUM 8.6 mg/dL (8.4-10.1); CREATININE 0.7 mg/dL (0.6-1.0); EST CRCL DRUG DOSING (CG) 70.13 mL/min; PROTEIN TOTAL,TP 6.4 g/dL (6.4-8.2)
[2024-09-30] MEDS: ALPRAZolam 0.25 MG Tab PO PRN (18:31)
[2024-09-30] MEDS: Iopamidol 755 Mg/ML 100 ML Bottle IVPUSH ONE (19:35)
[2024-09-30] MEDS: Albuterol 6.7 GM Inhaler INH PRN (23:03)
[2024-10-01 07:42] LABS: BASOPHILS ABSOLUTE AUTO 0.03 10^3/uL (0.00-0.50); BASOPHILS PERCENT AUTO 0.3 % (0-1); EOSINOPHILS ABSOLUTE AUTO 0.16 10^3/uL (0.00-1.50); EOSINOPHILS PERCENT AUTO 1.4 % (0-6); HEMATOCRIT 31.2 % (37.0-47.0); HEMOGLOBIN 9.8 g/dL (12.0-16.0); IMMATURE GRAN ABSOLUTE AUTO 0.03 10^3/uL (0.00-0.49); IMMATURE GRAN PERCENT AUTO 0.3 % (0.0-4.9); LYMPHOCYTES ABSOLUTE AUTO 1.03 10^3/uL (0.60-5.00); LYMPHOCYTES PERCENT AUTO 8.8 % (24-44); MEAN CORPUSCULAR HEMOGLOBIN 29.3 pg (27.0-32.0); MEAN CORPUSCULAR HGB CONC 31.4 g/dL (32.0-36.0); MEAN CORPUSCULAR VOLUME 93.4 fL (83.0-97.0); MONOCYTES ABSOLUTE AUTO 0.52 10^3/uL (0.00-1.50); MONOCYTES PERCENT AUTO 4.4 % (0-10); NEUTROPHILS ABSOLUTE AUTO 9.97 x10^3/uL (1.80-8.00); NEUTROPHILS PERCENT AUTO 84.8 % (41-71); PLATELET COUNT,PLT 242 10^3/uL (150-400); RED BLOOD CELL COUNT 3.34 x10^6/uL (4.00-5.50); WHITE BLOOD CELL COUNT,WBC 11.7 10^3/uL (4.0-11.0)
[2024-10-01 07:53] LABS: ALBUMIN 2.6 g/dL (3.4-5.0); BILIRUBIN TOTAL 0.5 mg/dL (0.0-1.0); C-REACTIVE PROTEIN 23.27 mg/dL (<=0.50); CALCIUM 9.3 mg/dL (8.4-10.1); CREATININE 0.8 mg/dL (0.6-1.0); EST CRCL DRUG DOSING (CG) 61.36 mL/min; POTASSIUM,K 4.8 mEq/L (3.5-5.0); PROTEIN TOTAL,TP 6.8 g/dL (6.4-8.2)
[2024-10-01] MEDS: Levofloxacin/Dextrose 5%-Water 750 MG in Premix Bag 1 BAG IV SCH (09:31)
[2024-10-01] MEDS: methylPREDNISolone Sodium Succinate 125 MG/2 ML SDV IVPUSH SCH (09:31)
[2024-10-01] MEDS: Albuterol/Ipratropium 3.0-0.5 MG/3 ML Neb Soln NEB SCH (11:00)
[2024-10-01] MEDS: traZODone 50 MG Tab PO PRN (20:27)
[2024-10-02 08:15] LABS: BASOPHILS ABSOLUTE AUTO 0.01 10^3/uL (0.00-0.50); BASOPHILS PERCENT AUTO 0.1 % (0-1); HEMATOCRIT 32.6 % (37.0-47.0); HEMOGLOBIN 10.3 g/dL (12.0-16.0); IMMATURE GRAN ABSOLUTE AUTO 0.07 10^3/uL (0.00-0.49); IMMATURE GRAN PERCENT AUTO 0.5 % (0.0-4.9); LYMPHOCYTES ABSOLUTE AUTO 0.67 10^3/uL (0.60-5.00); LYMPHOCYTES PERCENT AUTO 5.2 % (24-44); MEAN CORPUSCULAR HEMOGLOBIN 29.4 pg (27.0-32.0); MEAN CORPUSCULAR HGB CONC 31.6 g/dL (32.0-36.0); MEAN CORPUSCULAR VOLUME 93.1 fL (83.0-97.0); MONOCYTES PERCENT AUTO 4.7 % (0-10); NEUTROPHILS ABSOLUTE AUTO 11.43 x10^3/uL (1.80-8.00); NEUTROPHILS PERCENT AUTO 89.5 % (41-71); PLATELET COUNT,PLT 312 10^3/uL (150-400); WHITE BLOOD CELL COUNT,WBC 12.8 10^3/uL (4.0-11.0)
[2024-10-02 08:25] LABS: ALBUMIN 2.5 g/dL (3.4-5.0); BILIRUBIN TOTAL 0.6 mg/dL (0.0-1.0); C-REACTIVE PROTEIN 22.32 mg/dL (<=0.50); CALCIUM 9.3 mg/dL (8.4-10.1); CREATININE 0.8 mg/dL (0.6-1.0); EST CRCL DRUG DOSING (CG) 61.36 mL/min; POTASSIUM,K 4.6 mEq/L (3.5-5.0)
[2024-10-02] MEDS: Lactobacillus Rhamnosus GG (Probiotic) Cap PO SCH (08:32)
[2024-10-02] MEDS: Take Home: Albuterol/Ipratropium 3.0-0.5 MG/3 ML Neb Soln, 4 Neb Pack NEB ONE (11:03)
[2024-10-02 11:53] VITALS: BP 123/76; PULSE 108
== END 2024-10-02 12:50 | disposition home or self-care (01) | DRG 195 ==
LOC: CC.ED 18:47 → CC.MS 20:16
PROVIDERS: ADMIT Nurse Practitioner Family; ATTEND Nurse Practitioner Family
DX: J18.9 Pneumonia, unspecified organism (principal); E87.6 Hypokalemia; E83.42 Hypomagnesemia; E78.00 Pure hypercholesterolemia, unspecified; G47.30 Sleep apnea, unspecified; K21.9 Gastro-esophageal reflux disease without esophagitis; J43.2 Centrilobular emphysema; F41.9 Anxiety disorder, unspecified; F32.A Depression, unspecified; E03.9 Hypothyroidism, unspecified; Z90.89 Acquired absence of other organs; Z90.710 Acquired absence of both cervix and uterus; Z98.890 Other specified postprocedural states; Z88.0 Allergy status to penicillin; Z88.8 Allergy status to other drugs, medicaments and biological substances; Z79.899 Other long term (current) drug therapy; Z79.51 Long term (current) use of inhaled steroids; Z79.52 Long term (current) use of systemic steroids
CPT/HCPCS: 0241U; 36415; 71046; 71275; 80053; 81001; 83605; 83735; 84484; 85025; 85379; 86140; 87040; 87070; 87081; 87205; 93005; 93010; 94640; 96361; 96374; 96375; 99223; 99232; 99233; 99238; 99285-25; A9270-GY; J0456; J0696; J1650; J1956; J2919; J3475; J7030; J7050; Q9967

== ENCOUNTER 2024-10-26 12:51 | Emergency (ER) | payer OTHER ==
[2024-10-26] MEDS: Naloxone 2 MG/2 ML Syringe IVPUSH ONE (13:00)
[2024-10-26] MEDS: Flumazenil 0.1 MG/ML 10 ML MDV IVPUSH ONE (13:03)
[2024-10-26] MEDS: Flumazenil 0.1 MG/ML 5 ML MDV IVPUSH ONE ×2 (13:09→13:20)
[2024-10-26 13:20] LABS: BASOPHILS ABSOLUTE AUTO 0.06 10^3/uL (0.00-0.50); BASOPHILS PERCENT AUTO 0.5 % (0-1); EOSINOPHILS ABSOLUTE AUTO 0.14 10^3/uL (0.00-1.50); EOSINOPHILS PERCENT AUTO 1.1 % (0-6); HEMATOCRIT 37.1 % (37.0-47.0); HEMOGLOBIN 11.7 g/dL (12.0-16.0); IMMATURE GRAN ABSOLUTE AUTO 0.02 10^3/uL (0.00-0.49); IMMATURE GRAN PERCENT AUTO 0.2 % (0.0-4.9); LYMPHOCYTES ABSOLUTE AUTO 2.17 10^3/uL (0.60-5.00); LYMPHOCYTES PERCENT AUTO 17.8 % (24-44); MEAN CORPUSCULAR HEMOGLOBIN 29.3 pg (27.0-32.0); MEAN CORPUSCULAR HGB CONC 31.5 g/dL (32.0-36.0); MEAN CORPUSCULAR VOLUME 92.8 fL (83.0-97.0); MONOCYTES ABSOLUTE AUTO 0.94 10^3/uL (0.00-1.50); MONOCYTES PERCENT AUTO 7.7 % (0-10); NEUTROPHILS ABSOLUTE AUTO 8.88 x10^3/uL (1.80-8.00); NEUTROPHILS PERCENT AUTO 72.7 % (41-71); PLATELET COUNT,PLT 232 10^3/uL (150-400); WHITE BLOOD CELL COUNT,WBC 12.2 10^3/uL (4.0-11.0)
[2024-10-26 13:32] LABS: ALANINE AMINOTRANSFERASE,ALT 22 U/L (12-78); ALBUMIN 3.8 g/dL (3.4-5.0); ALKALINE PHOSPHATASE 68 U/L (46-116); ASPARTATE AMNIOTRANSFERASE,AST 58 U/L (15-37); BILIRUBIN TOTAL 0.4 mg/dL (0.0-1.0); BLOOD UREA NITROGEN,BUN 23 mg/dL (7-18); CALCIUM 10.2 mg/dL (8.4-10.1); CARBON DIOXIDE,CO2 29 mmol/L (21-32); CHLORIDE,CL 100 mEq/L (98-106); CREATININE 1.1 mg/dL (0.6-1.0); GLUCOSE RANDOM 136 mg/dL (75-99); POTASSIUM,K 4.5 mEq/L (3.5-5.0); PROTEIN TOTAL,TP 7.3 g/dL (6.4-8.2); SODIUM,NA 139 mEq/L (136-145)
[2024-10-26 13:35] LABS: C-REACTIVE PROTEIN < 0.50 mg/dL (<=0.50); ESTIMATED GFR 59 mL/min (>=60)
[2024-10-26 13:39] LABS: APPEARANCE,URINE CLEAR (CLEAR); BILIRUBIN,URINE NEGATIVE (NEGATIVE); COLOR,URINE YELLOW (YELLOW); GLUCOSE,URINE NEGATIVE (NEGATIVE); KETONES,URINE NEGATIVE (NEGATIVE); LEUKOCYTE ESTERASE,URINE NEGATIVE (NEGATIVE); NITRITE,URINE NEGATIVE (NEGATIVE); OCCULT BLOOD,URINE NEGATIVE (NEGATIVE); PROTEIN,URINE NEGATIVE (NEGATIVE); UROBILINOGEN,URINE 0.2 EU/dL (0.2-1.0)
[2024-10-26 13:43] LABS: AMPHETAMINES,URINE NEGATIVE (NEGATIVE); BARBITURATES,URINE NEGATIVE (NEGATIVE); MDMA (ECSTASY), URINE NEGATIVE (NEGATIVE); METHADONE,URINE NEGATIVE (NEGATIVE); METHAMPHETAMINES,URINE NEGATIVE (NEGATIVE); OPIATES,URINE NEGATIVE (NEGATIVE); OXYCODONE,URINE NEGATIVE (NEGATIVE); PHENCYCLIDINE,URINE NEGATIVE (NEGATIVE)
[2024-10-26 13:46] LABS: BENZODIAZEPINE,URINE POSITIVE (NEGATIVE); TCA,URINE POSITIVE (NEGATIVE)
[2024-10-26] MEDS: Sodium Chloride 0.9% 1,000 ML IV ONE (13:50)
[2024-10-26 14:03] LABS: AMPHETAMINES,URINE NEGATIVE (NEGATIVE); BARBITURATES,URINE NEGATIVE (NEGATIVE); BENZODIAZEPINE,URINE POSITIVE (NEGATIVE); MDMA (ECSTASY), URINE NEGATIVE (NEGATIVE); METHADONE,URINE NEGATIVE (NEGATIVE); METHAMPHETAMINES,URINE NEGATIVE (NEGATIVE); OPIATES,URINE NEGATIVE (NEGATIVE); OXYCODONE,URINE NEGATIVE (NEGATIVE); PHENCYCLIDINE,URINE NEGATIVE (NEGATIVE); TCA,URINE POSITIVE (NEGATIVE)
[2024-10-26] MEDS: LORazepam 2 MG/ML SDV IVPUSH ONE ×2 (14:05→14:29)
[2024-10-26] MEDS: Midazolam 1 MG/ML 2 ML SDV IVPUSH ONE ×4 (14:39→15:54)
[2024-10-26 15:06] VITALS: BP 169/71; PULSE 130
[2024-10-26] MEDS: Etomidate 2 MG/ML 10 ML SDV IVPUSH ONE (15:37)
[2024-10-26] MEDS: Succinylcholine 200 MG/10 ML MDV IVPUSH ONE (15:38)
[2024-10-26] MEDS: fentaNYL 100 MCG/2 ML SDV IVPUSH ONE ×2 (15:42→15:51)
[2024-10-26] MEDS: Ketamine 200 MG/20 ML MDV IVPUSH ONE (15:42)
[2024-10-26] MEDS: propofoL 1,000 MG/100 ML 100 ML IV SCH (15:56)
[2024-10-26] MEDS: Rocuronium 50 MG/5 ML Vial IVPUSH ONE (15:57)
[2024-10-26] MEDS: Midazolam 50 MG in Sodium Chloride 0.9% 100 ML IV SCH (15:59)
[2024-10-26] MEDS: Midazolam 1 MG/ML 2 ML SDV ONE (16:34)
[2024-10-26] MEDS: Sodium Chloride 0.9% 1,000 ML ONE (16:34)
[2024-10-26] MEDS: propofoL 1,000 MG/100 ML 100 ML ONE (16:34)
[2024-10-26] MEDS: fentaNYL 100 MCG/2 ML SDV ONE (16:34)
[2024-10-26] MEDS: Ketamine 200 MG/20 ML MDV ONE (16:34)
[2024-10-26] MEDS: Succinylcholine 200 MG/10 ML MDV ONE (16:34)
[2024-10-26] MEDS: Sodium Chloride 0.9% 100 ML ONE (16:34)
[2024-10-26] MEDS: fentaNYL 50 MCG/ML SDV ONE (16:34)
[2024-10-26] MEDS: Rocuronium 50 MG/5 ML Vial ONE (16:35)
== END 2024-10-26 17:03 ==
LOC: CC.ED 12:51
DX: T48.1X1A Poisoning by skeletal muscle relaxants [neuromuscular blocking agents], accidental (unintentional), initial encounter (principal); E78.00 Pure hypercholesterolemia, unspecified; J44.9 Chronic obstructive pulmonary disease, unspecified; E03.9 Hypothyroidism, unspecified; Z88.0 Allergy status to penicillin; Z88.8 Allergy status to other drugs, medicaments and biological substances; Z79.890 Hormone replacement therapy; Z79.899 Other long term (current) drug therapy; Z79.51 Long term (current) use of inhaled steroids
CPT/HCPCS: 31500; 36415; 51702; 71045; 80053; 80143; 80179; 80305-QW; 80307; 81003; 85025; 86140; 93005; 96361; 96365; 96368; 96375; 96376; 99285-25; J0330; J2060; J2250; J2310; J2704; J3010; J3490; J7030

== ENCOUNTER 2025-02-19 13:24 | Emergency (ER) | payer MEDICAID, OTHER ==
[2025-02-19 13:28] VITALS: BP 130/82; PULSE 82
[2025-02-19] MEDS: Orphenadrine 60 MG/2 ML Inj IM ONE (14:04)
== END 2025-02-19 14:21 | disposition home or self-care (01) ==
LOC: CC.ED 13:24
DX: M54.50 Low back pain, unspecified (principal); G89.29 Other chronic pain; J44.9 Chronic obstructive pulmonary disease, unspecified; K21.9 Gastro-esophageal reflux disease without esophagitis; E78.00 Pure hypercholesterolemia, unspecified; E03.9 Hypothyroidism, unspecified; Z87.891 Personal history of nicotine dependence; Z79.899 Other long term (current) drug therapy; Z79.890 Hormone replacement therapy; Z88.0 Allergy status to penicillin; Z88.6 Allergy status to analgesic agent; Z88.8 Allergy status to other drugs, medicaments and biological substances
CPT/HCPCS: 96372; 99283; J2360; J1171

== ENCOUNTER 2025-03-01 10:45 | Inpatient (IN) | payer MEDICARE, OTHER ==
[2025-03-01 11:12] LABS: BASOPHILS ABSOLUTE AUTO 0.02 10^3/uL (0.00-0.50); BASOPHILS PERCENT AUTO 0.2 % (0-1); EOSINOPHILS ABSOLUTE AUTO 0.06 10^3/uL (0.00-1.50); EOSINOPHILS PERCENT AUTO 0.5 % (0-6); IMMATURE GRAN ABSOLUTE AUTO 0.05 10^3/uL (0.00-0.49); IMMATURE GRAN PERCENT AUTO 0.4 % (0.0-4.9); LYMPHOCYTES ABSOLUTE AUTO 1.04 10^3/uL (0.60-5.00); LYMPHOCYTES PERCENT AUTO 8.6 % (24-44); MONOCYTES ABSOLUTE AUTO 0.55 10^3/uL (0.00-1.50); MONOCYTES PERCENT AUTO 4.5 % (0-10); NEUTROPHILS ABSOLUTE AUTO 10.37 x10^3/uL (1.80-8.00); NEUTROPHILS PERCENT AUTO 85.8 % (41-71); PLATELET COUNT,PLT 293 10^3/uL (150-400); RED BLOOD CELL COUNT 4.37 x10^6/uL (4.00-5.50); WHITE BLOOD CELL COUNT,WBC 12.1 10^3/uL (4.0-11.0)
[2025-03-01 11:26] LABS: ALANINE AMINOTRANSFERASE,ALT 11.0 U/L (12-78); ASPARTATE AMNIOTRANSFERASE,AST 12.0 U/L (15-37); BILIRUBIN TOTAL 0.9 mg/dL (0.0-1.0); BLOOD UREA NITROGEN,BUN 7.0 mg/dL (7-18); CARBON DIOXIDE,CO2 31.0 mmol/L (21-32); CHLORIDE,CL 98.0 mEq/L (98-106); CREATININE 0.8 mg/dL (0.6-1.0); EST CRCL DRUG DOSING (CG) 61.36 mL/min; GLUCOSE RANDOM 112.0 mg/dL (75-99); POTASSIUM,K 3.4 mEq/L (3.5-5.0); PROTEIN TOTAL,TP 7.5 g/dL (6.4-8.2); SODIUM,NA 137.0 mEq/L (136-145)
[2025-03-01 11:28] LABS: ESTIMATED GFR 86.0 mL/min (>=60)
[2025-03-01 12:36] LABS: CORONAVIRUS COVID-19 NAA NEGATIVE (NEGATIVE); INFLUENZA A NAA NEGATIVE (NEGATIVE)
[2025-03-01 12:37] LABS: INFLUENZA B NAA NEGATIVE (NEGATIVE)
[2025-03-01] MEDS ORDERED: Levofloxacin/Dextrose 5%-Water 500 MG in Premix Bag 1 BAG IV SCH (14:37)
[2025-03-01] MEDS ORDERED: Ondansetron 4 MG Tab.DIS PO PRN (14:37)
[2025-03-01] MEDS ORDERED: Ondansetron 4 MG/2 ML SDV IV PRN (14:37)
[2025-03-01] MEDS ORDERED: Sodium Chloride 0.9% 10 ML Syringe FLUSH PRN (14:37)
[2025-03-01] MEDS: Levofloxacin/Dextrose 5%-Water 750 MG in Premix Bag 1 BAG IV SCH (15:14)
[2025-03-01] MEDS: methylPREDNISolone Sodium Succinate 40 MG/1 ML SDV IVPUSH ONE (16:52)
[2025-03-01] MEDS: Acetaminophen/HYDROcodone 325-5 MG Tab PO SCH (19:06)
[2025-03-01] MEDS: Formoterol/Mometasone 200-5 MCG 8.8 GM Inhaler IH SCH (19:06)
[2025-03-01] MEDS ORDERED: methylPREDNISolone Sodium Succinate 40 MG/1 ML SDV IVPUSH SCH (20:00)
[2025-03-02 07:55] LABS: PLATELET COUNT,PLT 297 10^3/uL (150-400); RED BLOOD CELL COUNT 4.36 x10^6/uL (4.00-5.50); WHITE BLOOD CELL COUNT,WBC 9.9 10^3/uL (4.0-11.0)
[2025-03-02] MEDS: Cholecalciferol (Vitamin D3) 25 MCG Tab PO SCH (07:55)
[2025-03-02] MEDS: Ferrous Sulfate 324 MG Tab.EC PO SCH (07:56)
[2025-03-02] MEDS: Tiotropium Bromide 4 GM Inhalation Spray (2.5mcg/1 dose; 10 doses) INH SCH (07:56)
[2025-03-02] MEDS: methylPREDNISolone Sodium Succinate 40 MG/1 ML SDV IVPUSH SCH (07:57)
[2025-03-02 08:04] LABS: ALANINE AMINOTRANSFERASE,ALT 9.0 U/L (12-78); ASPARTATE AMNIOTRANSFERASE,AST 8.0 U/L (15-37); BILIRUBIN TOTAL 0.4 mg/dL (0.0-1.0); BLOOD UREA NITROGEN,BUN 9.0 mg/dL (7-18); CARBON DIOXIDE,CO2 28.0 mmol/L (21-32); CHLORIDE,CL 102.0 mEq/L (98-106); CREATININE 1.0 mg/dL (0.6-1.0); EST CRCL DRUG DOSING (CG) 51.34 mL/min; GLUCOSE RANDOM 267.0 mg/dL (75-99); POTASSIUM,K 4.0 mEq/L (3.5-5.0); PROTEIN TOTAL,TP 7.2 g/dL (6.4-8.2); SODIUM,NA 139.0 mEq/L (136-145)
[2025-03-02 08:29] LABS: ESTIMATED GFR 66.0 mL/min (>=60)
[2025-03-02 09:41] LABS: EOSINOPHILS ABSOLUTE MAN 0.50 10^3/uL (0.00-0.45); EOSINOPHILS PERCENT MAN 5 % (0-5); MONOCYTES ABSOLUTE MAN 0.59 10^3/uL (0.00-0.80); MONOCYTES PERCENT MAN 6 % (2-12); NEUTROPHILS ABSOLUTE MAN 8.81 10^3/uL (1.80-7.00); SEG NEUTROPHILS PERCENT MAN 89 % (35-85)
[2025-03-02] MEDS ORDERED: Acetaminophen/HYDROcodone 325-5 MG Tab PO PRN (16:12)
[2025-03-03 07:43] LABS: BASOPHILS ABSOLUTE AUTO 0.01 10^3/uL (0.00-0.50); BASOPHILS PERCENT AUTO 0.1 % (0-1); EOSINOPHILS ABSOLUTE AUTO 0.00 10^3/uL (0.00-1.50); EOSINOPHILS PERCENT AUTO 0.0 % (0-6); IMMATURE GRAN ABSOLUTE AUTO 0.02 10^3/uL (0.00-0.49); IMMATURE GRAN PERCENT AUTO 0.2 % (0.0-4.9); LYMPHOCYTES ABSOLUTE AUTO 1.17 10^3/uL (0.60-5.00); LYMPHOCYTES PERCENT AUTO 9.7 % (24-44); MONOCYTES ABSOLUTE AUTO 0.66 10^3/uL (0.00-1.50); MONOCYTES PERCENT AUTO 5.5 % (0-10); NEUTROPHILS ABSOLUTE AUTO 10.18 x10^3/uL (1.80-8.00); NEUTROPHILS PERCENT AUTO 84.5 % (41-71); PLATELET COUNT,PLT 320 10^3/uL (150-400); RED BLOOD CELL COUNT 4.62 x10^6/uL (4.00-5.50); WHITE BLOOD CELL COUNT,WBC 12.0 10^3/uL (4.0-11.0)
[2025-03-03 08:50] LABS: ALANINE AMINOTRANSFERASE,ALT 12.0 U/L (12-78); ASPARTATE AMNIOTRANSFERASE,AST 13.0 U/L (15-37); BILIRUBIN TOTAL 0.2 mg/dL (0.0-1.0); BLOOD UREA NITROGEN,BUN 16.0 mg/dL (7-18); CARBON DIOXIDE,CO2 32.0 mmol/L (21-32); CHLORIDE,CL 103.0 mEq/L (98-106); CREATININE 0.9 mg/dL (0.6-1.0); EST CRCL DRUG DOSING (CG) 57.05 mL/min; GLUCOSE RANDOM 120.0 mg/dL (75-99); POTASSIUM,K 5.0 mEq/L (3.5-5.0); PROTEIN TOTAL,TP 7.3 g/dL (6.4-8.2); SODIUM,NA 140.0 mEq/L (136-145)
[2025-03-03 08:55] LABS: ESTIMATED GFR 75.0 mL/min (>=60)
[2025-03-03] MEDS: Levofloxacin/Dextrose 5%-Water 750 MG in Premix Bag 1 BAG IV SCH (12:30)
[2025-03-03] MEDS: FENTANYL PATCH TRDERM SCH (16:30)
[2025-03-03] MEDS: fentaNYL 25 MCG/HR Transdermal Patch TRDERM SCH (16:40)
[2025-03-03 18:39] VITALS: BP 113/74; PULSE 101
== END 2025-03-03 18:35 | disposition home or self-care (01) | DRG 194 ==
LOC: CC.ED 10:45 → CC.MS 14:01 → UNDOADMIN 14:08
PROVIDERS: ADMIT Physician Assistant Medical; ATTEND Physician Assistant Medical
DX: J18.9 Pneumonia, unspecified organism (principal); J44.0 Chronic obstructive pulmonary disease with (acute) lower respiratory infection; E78.00 Pure hypercholesterolemia, unspecified; G47.30 Sleep apnea, unspecified; F17.200 Nicotine dependence, unspecified, uncomplicated; K21.9 Gastro-esophageal reflux disease without esophagitis; Z88.5 Allergy status to narcotic agent; Z79.890 Hormone replacement therapy; M54.9 Dorsalgia, unspecified; G89.29 Other chronic pain; G43.909 Migraine, unspecified, not intractable, without status migrainosus; F41.9 Anxiety disorder, unspecified; F32.A Depression, unspecified; E03.9 Hypothyroidism, unspecified; F17.210 Nicotine dependence, cigarettes, uncomplicated; R09.02 Hypoxemia; Z88.0 Allergy status to penicillin; Z88.8 Allergy status to other drugs, medicaments and biological substances; Z79.51 Long term (current) use of inhaled steroids; Z79.899 Other long term (current) drug therapy; Z79.52 Long term (current) use of systemic steroids; Z79.2 Long term (current) use of antibiotics; Z98.890 Other specified postprocedural states; Z90.89 Acquired absence of other organs; Z90.710 Acquired absence of both cervix and uterus
CPT/HCPCS: 36415; 71046; 80053; 85025; 86140; 87636; 94640; 99223; 99233; 99239; 99285; A9270-GY; J1956; J2919